=== PATIENT | female | born 1965 | race African-American/Black ===

== ENCOUNTER → 2018-01-08 17:58 | Outpatient (CLI) | payer OTHER, SELFPAY | PROVIDERS: Family Provider Family Medicine; PCP Family Medicine; Visit Provider Family Medicine | DX: J06.9 Acute upper respiratory infection, unspecified (principal) | CPT/HCPCS: 87070 ==

== ENCOUNTER → 2018-09-25 08:54 | Outpatient (CLI) | payer OTHER, SELFPAY ==
[2018-09-25 10:49] LABS: Absolute Neutrophil Count 4.8 X10^3/uL (2.0-7.7); Basophil# 0.02 X10^3/uL; Basophil% 0.3 % (0-1); Eosinophil# 0.11 X10^3/uL; Eosinophils% 1.4 % (0-5); Hematocrit 36.6 % (37-47); Hemoglobin 11.2 g/dl (12.0-15.0); Mean Corp Hgb Conc 30.6 g/gl (32-36); Mean Corpuscular Hgb 27.4 pg (27.0-32.0); Mean Corpuscular Volume 89.5 fL (81-99); Mean Platelet Vol. 12.1 fl (6.2-12.0); Monocyte# 0.42 X10^3/uL; Monocyte% 5.5 % (0-10); Neutrophil # 4.79 X10^3/uL (2.7-7.7); Neutrophil % 62.5 % (47-70); Platelet Count 230 K/mm3 (150-450); RBC Distribution Width CV 14.1 % (11.6-14.6); RBC Distribution Width SD 45.3 fl (35.1-43.9); Red Blood Count 4.09 M/mm3 (4.2-5.4); White Blood Count 7.7 K/mm3 (4.4-11.0)
[2018-09-25 10:51] LABS: POSITIVE COUNT NO; POSITIVE DIFFERENTIAL NO; POSITIVE MORPHOLOGY NO
[2018-09-25 11:46] LABS: ALB/GLOB Ratio 0.9 RATIO (0.9-2.4); AST(SGOT) 17 U/L (15-37); Alanine Aminotransfer ALT/SGPT 20 U/L (13-56); Albumin, Serum 3.6 g/dL (3.2-5.0); Alkaline Phosphatase 82 U/L (45-117); Anion Gap 6 (5-15); BUN 9 mg/dL (7-18); BUN/Creat Ratio 11.2 RATIO (10-20); Calcium,Total 8.5 mg/dL (8.5-10.1); Chloride 108 mmol/L (98-107); Cholesterol 152 mg/dL (200); EST Glomerular Filtration Rate 79 mL/min (>60); Est Glom Filt Rate - Afr Amer 96 mL/min (>60); Globulin 4.2 g/dL (2.2-4.2); Glucose 94 mg/dL (74-106); High Density Lipoprotein 55 mg/dL; Potassium 3.9 mmol/L (3.5-5.1); Protein, Total 7.8 g/dL (6.4-8.2); Sodium Level 141 mmol/L (136-145); Thyroid Stim Hormone (TSH) 2.46 uIU/mL (0.358-3.74); Triglycerides 106 mg/dL; Very Low Density Lipoprotein 21 mg/dL (5-40)
[2018-09-25 12:08] LABS: Vitamin D,25 Hydroxy 12.8 ng/mL (29.95-100.01)
== END ==
PROVIDERS: Family Provider Family Medicine; PCP Family Medicine; Visit Provider Nurse Practitioner Family
DX: Z00.00 Encounter for general adult medical examination without abnormal findings (principal); E55.9 Vitamin D deficiency, unspecified; R53.83 Other fatigue
CPT/HCPCS: 36415; 80053; 80061; 82306; 84443; 85025

== ENCOUNTER → 2019-10-01 16:27 | Outpatient (CLI) | payer OTHER, SELFPAY ==
[2016-04-05 22:40] VITALS: BMI 40.4
--- NOTE | 2019-10-01 16:30 | BI_ITS ---
MAMMOGRAPHY - BILATERAL SCREENING REASON FOR EXAM: Female, 54 years old. Routine annual screening examination. PERTINENT HISTORY: Sister with breast cancer. TECHNIQUE: Digital bilateral breast lencho (3D mammographic acquisition) in the CC and MLO projections. 2-D mediolateral oblique (MLO) and craniocaudad (CC) views of both breasts were obtained. CAD: Full Field Digital Mammography with Computer Added Detection was performed. COMPARISON: Comparison is made with prior examination dated September 09, 2017. FINDINGS: Breast Composition: There are scattered areas of fibroglandular density. There are no dominant masses or suspicious calcifications. Stable benign appearing bilateral axillary lymph nodes. No other significant abnormalities are identified. There has been no significant change since the prior study. BI/SCREEN MAMM (CAD) W/LENCHO BILAT IMPRESSION: Stable bilateral screening mammogram. Yearly follow-up mammogram recommended. (A) ASSESSMENT CATEGORY: BIRADS Category 2: Benign. A letter regarding these results will be sent to the patient by the facility within 30 days. Approximately 10% of breast cancers are not detected by mammography. A normal mammogram should not delay biopsy of a clinically suspicious abnormality. [id number] Electronically Signed: Kilo Zendejas, at 9:09 EST , Service support ,
== END ==
PROVIDERS: Family Provider Family Medicine; PCP Family Medicine; Referring Provider Nurse Practitioner Family; Visit Provider Nurse Practitioner Family
DX: Z12.31 Encounter for screening mammogram for malignant neoplasm of breast (principal)
CPT/HCPCS: 77063; 77067

== ENCOUNTER → 2019-10-31 10:24 | Outpatient (CLI) | payer OTHER, SELFPAY ==
[2019-10-31 10:18] VITALS: BMI 40.4
--- NOTE | 2019-10-31 10:24 | RAD_ITS ---
STUDY: X-RAY - RIGHT KNEE REASON FOR EXAM: Knee pain. TECHNIQUE: 4 view(s) of the knee. COMPARISON: None. FINDINGS: Normal visualized distal femur. Normal visualized proximal tibia and fibula. Normal proximal tibiofibular articulation. There are marginal osteophytes, severe joint space narrowing of the medial femorotibial compartment and subchondral cystic change of the medial femoral condyle. There are marginal osteophytes and mild joint space narrowing of the lateral femorotibial compartment. There are marginal osteophytes and moderate joint space narrowing of the patellofemoral articulation. The soft tissue structures are unremarkable. RAD/Knee 4 or More Views IMPRESSION: Tricompartmental arthrosis. Electronically Signed: Davi Mcgrath MD at 11:13 EST Tel , Service support ,
== END ==
LOC: HPRAD 10:24
PROVIDERS: Family Provider Family Medicine; PCP Family Medicine; Referring Provider Orthopaedic Surgery; Visit Provider Orthopaedic Surgery
DX: M25.561 Pain in right knee (principal)
CPT/HCPCS: 73564

== ENCOUNTER → 2019-12-31 16:53 | Outpatient (CLI) | payer OTHER, SELFPAY ==
[2019-12-30 08:09] VITALS: BMI 43.4
[2019-12-31 17:43] LABS: Absolute Lymphocyte Count 2.56 X10^3/uL (0.83-4.51); Absolute Neutrophil Count 5.9 X10^3/uL (2.0-7.7); Basophil# 0.03 X10^3/uL; Basophil% 0.3 % (0-1); Eosinophil# 0.14 X10^3/uL; Eosinophils% 1.5 % (0-5); Hematocrit 38.1 % (37-47); Hemoglobin 11.4 g/dL (12.0-15.0); Lymphocyte # 2.56 X10^3/ul (4.0); Lymphocyte % 27.7 % (19-41); Mean Corp Hgb Conc 29.9 g/dL (32-36); Mean Corpuscular Hgb 26.6 pg (27.0-32.0); Mean Platelet Vol. 11.8 fl (6.2-12.0); Monocyte# 0.57 X10^3/uL; Monocyte% 6.2 % (0-10); NRBC Flagged by Analyzer 0 % (0-5); Neutrophil # 5.92 X10^3/uL (2.7-7.7); Neutrophil % 64.1 % (47-70); Platelet Count 248 K/mm3 (150-450); RBC Distribution Width CV 14.5 % (11.6-14.6); RBC Distribution Width SD 46.7 fl (35.1-43.9); Red Blood Count 4.28 M/mm3 (4.2-5.4); White Blood Count 9.2 K/mm3 (4.4-11.0)
[2019-12-31 18:30] LABS: ALB/GLOB Ratio 0.9 RATIO (0.9-2.4); AST(SGOT) 18 U/L (15-37); Alanine Aminotransfer ALT/SGPT 22 U/L (13-56); Alkaline Phosphatase 92 U/L (45-117); Anion Gap 5 (5-15); BUN 14 mg/dL (7-18); BUN/Creat Ratio 13.7 RATIO (10-20); Calcium,Total 9.2 mg/dL (8.5-10.1); Chloride 106 mmol/L (98-107); Cholesterol 165 mg/dL (200); Creatinine, Serum 1.02 mg/dL (0.55-1.02); EST Glomerular Filtration Rate 60 mL/min (>60); Est Glom Filt Rate - Afr Amer 72 mL/min (>60); Globulin 4.6 g/dL (2.2-4.2); Glucose 83 mg/dL (74-106); High Density Lipoprotein 68 mg/dL; Potassium 4.2 mmol/L (3.5-5.1); Protein, Total 8.6 g/dL (6.4-8.2); Sodium Level 139 mmol/L (136-145); Triglycerides 51 mg/dL; Very Low Density Lipoprotein 10 mg/dL (5-40)
== END ==
PROVIDERS: Family Medicine; PCP Family Medicine; Referring Provider Family Medicine; Visit Provider Family Medicine
DX: G45.9 Transient cerebral ischemic attack, unspecified (principal)
CPT/HCPCS: 36415; 80053; 80061; 85025

== ENCOUNTER → 2020-01-01 08:27 | Outpatient (CLI) | payer OTHER, SELFPAY ==
[2019-12-30 08:09] VITALS: BMI 43.4
--- NOTE | 2020-01-01 12:47 | ECHOD_ITS ---
Reason For Study: TIA Procedure This was a 2D Doppler, Color Flow transthoracic echocardiogram. Exam performed in department. Left Ventricle Normal size and thickness. The estimated ejection fraction is 65 %. Stage 1 diastolic dysfunction. No regional wall motion abnormalities noted. Right Ventricle Normal size and thickness. Normal systolic function. Atria Normal left atrium. Normal right atrium. Normal atrial septum. Bubble contrast study negative for right to left interatrial shunt. Mitral Valve The mitral valve is structurally normal. No prolapse or stenosis seen. Tricuspid Valve Normal tricuspid valve. Unable to estimate RV systolic pressure due to insufficient tricuspid regurgitant envelope. Aortic Valve Normal aortic valve. Trisinus/trileaflet aortic valve. Pulmonic Valve Normal pulmonic valve. Great Vessels Normal aortic root. Normal arch. Normal inferior vena cava. Inferior vena cava collapse with sniff. Pericardium/Pleural No pericardial effusion. Medication 22 gauge I.V. with prn adaptor inserted into right arm. Performed a rapid injection of agitated mix of 9 cc saline and 1cc air to assess for atrial septal defect. MMode/2D Measurements & Calculations LVIDd: 4.4 cm IVSd: 0.96 cm Ao root diam: 2.9 cm LVIDs: 2.8 cm LVPWd: 1.0 cm RVDd: 2.9 cm FS: 35.7 % LAV(MOD-bp): 37.9 ml LVAd ap4: 27.1 cm2 SV(MOD-sp4): 49.8 ml LAV(MOD-bp) Indexed: 18.9 ml/m2 EDV(MOD-sp4): 79.0 ml LAV(MOD-sp2): 40.9 ml EDV(sp4-el): 81.8 ml LAV(MOD-sp4): 32.2 ml LVAs ap4: 14.6 cm2 ESV(MOD-sp4): 29.2 ml ESV(sp4-el): 28.1 ml EF(MOD-sp4): 63.1 % EF(sp4-el): 65.7 % SV(sp4-el): 53.7 ml LA A4 area: 14.3 cm2 LA dimension(2D): 3.2 cm RA A4 area: 10.6 cm2 Doppler Measurements & Calculations MV E max darrin: 48.8 cm/sec Lat Peak E' Darrin: 8.0 cm/sec Med Peak E' Darrin: 7.6 cm/sec MV A max darrin: 64.6 cm/sec E/E' lat: 6.1 E/E' med: 6.4 MV E/A: 0.75 Ao V2 max: 175.8 cm/sec LV V1 max: 99.6 cm/sec PA V2 max: 103.8 cm/sec Ao max P.4 mmHg LV V1 max P.0 mmHg Interpretation Summary The estimated ejection fraction is 65 %. Stage 1 diastolic dysfunction. Unable to estimate RV systolic pressure due to insufficient tricuspid regurgitant envelope. Bubble contrast study negative for right to left interatrial shunt. There is no comparison study available. Ordering Physician: Jimenez Adkins Referring Physician: Jimenez Adkins Performed By: Paula Bruce RDCS
--- NOTE | 2020-01-01 13:46 | MRI_ITS ---
STUDY: MRA OF THE HEAD WITHOUT CONTRAST REASON FOR EXAM: Female, 54 years old. tia, rt arm pain TECHNIQUE: 3-D riue-dx-wutouc (TOF) imaging was performed with MIPs. The study was performed unenhanced. COMPARISON: None. FINDINGS: Normal bilateral petrous carotid arteries. Normal right cavernous carotid artery with a normal supraclinoid bifurcation. Normal left cavernous carotid artery with a normal supraclinoid bifurcation. Normal right A1 segments of the anterior cerebral artery. Normal left A1 segments of the anterior cerebral artery. Normal intact anterior communicating artery (ACOM). Normal bilateral A2 segments of the anterior cerebral arteries. Normal right M1 and M2 segments of the middle cerebral arteries, with a normal M1 bifurcation. Normal left M1 and M2 segments of the middle cerebral arteries, with a normal M1 bifurcation. 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 There is a persistent origin of the left posterior cerebral artery with absence of the P1 segment of the left posterior cerebral artery. Normal bilateral vertebral arteries. Normal basilar artery with a normal basilar bifurcation. The visualized bilateral superior cerebellar (SCA) arteries are normal. Normal bilateral P1, P2 and visualized P3 segments of the posterior cerebral arteries. There is no demonstrated aneurysm of the [place]. There is no major vessel occlusion or hemodynamically significant stenosis. There is no demonstrated abnormality of the visualized brain. MRI/MRA Head ONLY without Contrast IMPRESSION: Normal MRA of the head Electronically Signed: Erik Hdz MD at 15:17 EDT Tel , Service support ,
--- NOTE | 2020-01-01 13:46 | MRI_ITS ---
STUDY: MRI BRAIN WITH AND WITHOUT CONTRAST REASON FOR EXAM: Female, 54 years old. tia, rt arm pain TECHNIQUE: Standardized multiplanar fat and water weighted pulse sequences were obtained. IV Yes YES was administered for the contrast portion of the examination. COMPARISON: None. FINDINGS: Normal size of the ventricles and extra-axial spaces for the patient''s age. Normal white matter tracts of the supratentorial brain. There is no evidence for recent intracranial ischemia or other cause of cytotoxic edema on diffusion weighted imaging (DWI). Normal T2* images of the brain without demonstrated susceptibility artifact. There is no demonstrated hemosiderin stain. Normal bilateral basal ganglia. Normal thalami. There is no extra-axial fluid accumulation. Normal flow voids within the major intracranial circulation suggesting patency by spin echo criteria. Normal venous enhancement. There is no enhancing intra-axial or extra-axial abnormality. Normal sella turcica, pituitary gland, infundibular stalk, optic chiasm and hypothalamus. Normal tectal plate and pineal gland. Normal midbrain, jose j and medulla. Normal cerebellum. Normal basal cisterns. Normal bilateral temporal bones. Normal bilateral internal auditory canals. No demonstrated orbital abnormality, within the constraints of a routine brain study. Normal visualized paranasal sinuses. Normal calvarium and skull base. Normal visualized soft tissue structures. Normal visualized upper cervical spine. MRI/Brain W/WO Contrast IMPRESSION: Normal unenhanced and enhanced MRI of the brain. Electronically Signed: Erik Hdz MD at 15:19 EDT Tel , Service support ,
[2020-01-01 18:33] LABS: Vitamin B12 451 pg/mL (211-911)
[2020-01-01 18:40] LABS: Iron 73 ug/dL (50-170); Iron Binding Capacity,Total 296 ug/dL (250-450); PERCENT IRON SATURATION 24.7 % (15.0-55.0)
== END ==
PROVIDERS: Family Medicine; PCP Family Medicine; Referring Provider Family Medicine; Visit Provider Family Medicine
DX: D64.9 Anemia, unspecified (principal); G45.9 Transient cerebral ischemic attack, unspecified
CPT/HCPCS: 36415; 70544; 70553; 82607; 82746; 83540; 83550; 93306; A9575; A4216

== ENCOUNTER → 2023-08-14 | Outpatient (CLI) | payer MEDICAID, SELFPAY ==
[2023-08-14 14:45] LABS: Absolute Lymphocyte Count 4.19 X10^3/uL (0.83-4.51); Basophil# 0.05 X10^3/uL; Basophil% 0.5 % (0-1); Eosinophil# 0.12 X10^3/uL; Eosinophils% 1.1 % (0-5); Hematocrit 37.7 % (37-47); Hemoglobin 11.2 g/dL (12.0-15.0); Lymphocyte # 4.19 X10^3/ul (0.83-4.51); Lymphocyte % 38.1 % (19-41); Mean Corp Hgb Conc 29.7 g/dL (32-36); Mean Corpuscular Hgb 26.9 pg (27.0-32.0); Mean Corpuscular Volume 90.4 fL (81-99); Mean Platelet Vol. 10.5 fl (6.2-12.0); Monocyte# 0.65 X10^3/uL; Monocyte% 5.9 % (0-10); NRBC Flagged by Analyzer 0 % (0-5); Neutrophil # 5.96 X10^3/uL (2.7-7.7); Neutrophil % 54.1 % (47-70); Platelet Count 257 K/mm3 (150-450); RBC Distribution Width SD 46.1 fl (35.1-43.9); Red Blood Count 4.17 M/mm3 (4.2-5.4)
--- NOTE | 2023-08-14 14:45 | RAD_ITS ---
STUDY: X-RAY CHEST REASON FOR EXAM: Female, 57 years old. Dyspnea. TECHNIQUE: Frontal and lateral views of the chest. COMPARISON: None. FINDINGS: The lungs are clear and expanded. There is no demonstrated pleural abnormality. Normal size heart. Normal mediastinum and manjinder. Normal visualized pulmonary arteries. Normal visualized aortic arch and descending thoracic aorta. Normal visualized thoracic spine. Normal visualized ribs, clavicles, and shoulders. No abnormality of the visualized soft tissue structures of the upper abdomen. RAD/Chest PA and Lateral IMPRESSION: Normal x-ray examination of the chest. Electronically Signed: Toni Chavarria MD at 14:56 EDT ,
[2023-08-14 15:08] LABS: ALB/GLOB Ratio 0.8 RATIO (0.9-2.4); AST(SGOT) 16 U/L (15-37); Alanine Aminotransfer ALT/SGPT 24 U/L (13-56); Albumin, Serum 3.7 g/dL (3.2-5.0); Alkaline Phosphatase 81 U/L (45-117); Anion Gap 4 (5-15); BUN 16 mg/dL (7-18); BUN/Creat Ratio 16.8 RATIO (10-20); Calcium,Total 8.9 mg/dL (8.5-10.1); Chloride 109 mmol/L (98-107); Creatinine, Serum 0.95 mg/dL (0.55-1.02); EST Glomerular Filtration Rate 64 mL/min (>60); Est Glom Filt Rate - Afr Amer 77 mL/min (>60); Globulin 4.6 g/dL (2.2-4.2); Glucose 111 mg/dL (74-106); Iron 57 ug/dL (50-170); Iron Binding Capacity,Total 305 ug/dL (250-450); PERCENT IRON SATURATION 18.7 % (15.0-55.0); Potassium 3.9 mmol/L (3.5-5.1); Protein, Total 8.3 g/dL (6.4-8.2); Sodium Level 139 mmol/L (136-145); Thyroid Stim Hormone (TSH) 2.45 uIU/mL (0.358-3.74)
== END | disposition home or self-care (01) ==
LOC: LAB 14:29
PROVIDERS: PCP Family Medicine; Referring Provider Nurse Practitioner Family; Visit Provider Nurse Practitioner Family
DX: D64.9 Anemia, unspecified (principal); R06.09 Other forms of dyspnea
CPT/HCPCS: 36415; 71046; 80053; 83540; 83550; 84443; 85025

== ENCOUNTER → 2023-08-24 | Outpatient (CLI) | payer MEDICAID, SELFPAY ==
--- NOTE | 2023-08-24 08:56 | US_ITS ---
STUDY: ULTRASOUND BREAST - LEFT REASON FOR EXAM: Female, 57 years old. Pain in the left upper outer quadrant. TECHNIQUE: Axial and longitudinal images of the LEFT breast were performed with a high resolution ultrasound transducer. # OF IMAGES: 27 COMPARISON: Comparison is made with prior mammogram done earlier today. FINDINGS: LEFT Breast: The upper-outer quadrant of left breast was examined with ultrasound. There is a 1 cm x 0.7 cm x 0.5 cm benign-appearing lymph node. US/Breast Limited Unilateral IMPRESSION: 1 cm x 0.7 cm x 0.5 cm benign-appearing lymph node in the axillary region of the left breast. ASSESSMENT CATEGORY: BIRADS Category 2: Benign. A letter regarding these results will be sent to the patient by the facility within 30 days. Electronically Signed: Kilo Zendejas MD at 10:54 EDT ,
--- NOTE | 2023-08-24 08:56 | BI_ITS ---
MAMMOGRAPHY - BILATERAL DIAGNOSTIC REASON FOR EXAM: Female, 57 years old. 2 month history of sharp left breast pain. PERTINENT HISTORY: Sister with breast cancer. TECHNIQUE: Digital bilateral breast eva (3D mammographic acquisition) in the CC and MLO projections. 2-D mediolateral oblique (MLO) and craniocaudad (CC) views of both breasts were obtained. CAD: Full Field Digital Mammography with Computer Added Detection was performed. COMPARISON: Comparison is made with prior study dated October 01, 2019 and September 09, 2017. FINDINGS: Breast Composition: There are scattered areas of fibroglandular density. There are no dominant masses or suspicious calcifications. Stable benign-appearing bilateral axillary lymph nodes. No other significant abnormalities are identified. There has been no significant change since the prior study. BI/DIAG MAMM W/CAD, BILAT IMPRESSION: Stable bilateral diagnostic mammogram. One year follow-up recommended. (A) ASSESSMENT CATEGORY: BIRADS Category 2: Benign. A letter regarding these results will be sent to the patient by the facility within 30 days. Approximately 10% of breast cancers are not detected by mammography. A normal mammogram should not delay biopsy of a clinically suspicious abnormality. Electronically Signed: Kilo Zendejas MD at 10:06 EDT ,
== END | disposition home or self-care (01) ==
LOC: OPBI 08:54
PROVIDERS: PCP Family Medicine; Referring Provider Nurse Practitioner Family; Visit Provider Nurse Practitioner Family
DX: R06.09 Other forms of dyspnea (principal); N64.4 Mastodynia
CPT/HCPCS: 76642; 77062; 77066; G0279

== ENCOUNTER → 2023-10-20 | Outpatient (CLI) | payer MEDICAID, SELFPAY ==
--- OUTSIDE RECORDS SUMMARY | 2023-10-20 09:24 | XMS RPT_ITS | CCD ---
Author Name Unknown Address [address] [place] [address] Organization [facility] Care Team Providers Care Registered Nurse Renal Name Role Phone FRANCO ARZOLA, ROCIO Christianson Primary Care Physician [phone] ROCIO GAMEZ MD. Primary Care Unavailable NIKKI SILVA Attending Unavailable Medications Completed/Discontinued Medications Medication Drug Class(es) Dates Sig (Normalized) Sig (Original) naproxen 500 mg oral tablet (1 source) Nonsteroidal Anti-inflammatory Drug Start: 04-04-2015 End: 05-04-2015 Naprosyn 500 mg oral tablet Dose : 500 mg = 1 tab(s), PO, BID, PRN as needed for pain, # 60 tab(s), 0 Refill(s) Start Date: 04/04/15 Stop Date: 05/04/15 Status: Ordered Problems Problem Classification Problem Date Documented Da te Episodic/Chronic Nonspecific chest pain (1 source) Chest pain; Translations: [Chest pain, unspecified] Onset: 07-11-2022 Episodic Other lower respiratory disease (1 source) Dyspnea; Translations: [Dyspnea, unspecified] Onset: 07-11-2022 Episodic Phlebitis; thrombophlebitis and thromboembolism (1 source) Deep venous thrombosis 04-04-2015 Episodic Results Test Name Value Interpretation Reference Range Facil ity Vital Signs Date Time Vital Sign Value Performing Clinician Faci lity 07-11-2022 17:13-0400 Body height 155 cm NIKKI ELLISElle PRUITT [facility] 07-11-2022 17:13-0400 Body temperature 98.42 [degF] [facility] 07-11-2022 17:13-0400 Body weight 109.2 kg NIKKI SILVA DO [facility] 07-11-2022 17:13-0400 Diastolic blood pressure 83 mm[Hg] NIKKI SILVA DO [facility] 07-11-2022 17:13-0400 Heart rate 112 /min NIKKI SILVA DO [facility] 07-11-2022 17:13-0400 Respiratory rate 20 /min NIKKI SILVA DO [facility] 07-11-2022 17:13-0400 Systolic blood pressure 128 mm[Hg] NIKKI SILVA DO [facility] Encounters Encounter Date Encounter Type Care Provider Facility Start: 07-11-2022 End: 07-11-2022 Emergency department patient visit ROCIO GAMEZ MD. Facility:B Start: 07-11-2022 End: 07-11-2022 Emergency department patient visit NIKKI SILVA DO [facility] Procedures Date Procedure Procedure Detail Performing Clinician Cholecystectomy NIKKI LLAMAS [facility] Hysterectomy NIKKI Almeida [facility] Payers Date Payer Category Payer Self-pay 1965 Unknown [id number] Social History Date Type Detail Facility Tobacco smoking status Never smo ked tobacco (finding) [facility] Sex Assigned At Sex [facility] Clinical Note 07-11-2022 Note Date & Type Note Facility 07-11-2022 Note Discharge Instructions Thank you for allowing [facility] to assist you with your healthcare needs. The following is important discharge information regarding your hospital visit. Diagnosis from Today's Visit Chest pain Dyspnea SOB - Shortness of breath What to Do Next Instructions from Your Care Team No qualifying data available. Post Acute Orders No qualifying data available. You Need to Schedule the Following Appointments Follow Up with Go to emergency room if symptoms worsen When Within 2-4 days Follow Up with ROCIO GAMEZ MD When Within 2-4 days Where: [facility] [address] [place] [address]- Allergies NKA Medications Please ask your primary doctor or pharmacist before taking any other medication not listed, including over the counter drugs, herbal medications, vitamins and or supplements as they may interact with your home medications. What How Much When Instructions Last Dose Unchanged naproxen (Naprosyn 500 mg oral tablet) 1 tab(s) by mouth Two (2) times a day as needed for as needed for pain Duration: 30 Days Please take this list to your next doctor s visit. Bring all medications you take, including over the counter medications, herbals and other supplements with you to your doctor s visit. Patients and families are reminded to discard old lists and to update any records with all medication providers or retail pharmacies. Education Materials Uncertain Causes of Chest Pain Chest pain can happen for a number of reasons. Sometimes the cause can't be determined. If your condition does not seem serious, and your pain does not appear to be coming from your heart, your healthcare provider may recommend watching it closely. Sometimes the signs of a serious problem take more time to appear. Many problems not related to your heart can cause chest pain. These include: Musculoskeletal. Costochondritis is an inflammation of the tissues around the ribs that can occur from trauma or overuse injuries, or a strain of the muscles of the chest wall Respiratory. Pneumonia, collapsed lung (pneumothorax), or inflammation of the lining of the chest and lungs (pleurisy) Gastrointestinal. Esophageal reflux, heartburn, ulcers, or gallbladder disease Anxiety and panic disorders Nerve compression and inflammation Rare miscellaneous problems such as aortic aneurysm (a swelling of the large artery coming out of the heart) or pulmonary embolism (a blood clot in the lungs) Home care After your visit, follow these recommendations: Rest today and avoid strenuous activity. Take any prescribed medicine as directed. Be aware of any recurrent chest pain and notice any changes Follow-up care Follow up with your healthcare provider if you do not start to feel better within 24 hours, or as advised. Call 911 Call 911 if any of these occur: A change in the type of pain: if it feels different, becomes more severe, lasts longer, or begins to spread into your shoulder, arm, neck, jaw or back Shortness of breath or increased pain with breathing Weakness, dizziness, or fainting Rapid heart beat Crushing sensation in your chest When to seek medical advice Call your healthcare provider right away if any of the following occur: Cough with dark colored sputum (phlegm) or blood Fever of 100.4 F (38 C) or higher, or as directed by your healthcare provider Swelling, pain or redness in one leg 2642-3846 [employer]. [address] [place] [address], [place] [address]. All rights reserved. This information is not intended as a substitute for professional medical care. Always follow your healthcare professional's instructions. Additional Information VACCINATE! IT SAVES LIVES! Members of the community who have not yet received the COVID-19 vaccine and would like to receive it can visit one of [facility] vaccine clinics. There are many vaccine clinic locations within the [facility]. For locations and available times, please visit [email or web address]. It is important to note that some COVID mobile vaccine clinics are held outdoors and may be canceled in rainy or stormy conditions. To learn more about pediatric vaccinations (ages 5-11), we invite you to visit the [facility] webpage. https://www.[facility].org/pages/2 236-Nwajq-Lukvdvpyzxc-Frequently-Asked -Questions.html To learn more about the COVID-19 vaccine, we invite you to visit the [facility] website for a list of frequently asked questions. [email or web address].ActiveSec/assets/Patients-an d-Visitors/utrof-Gvkqeag-Pxesgekjpu_Hq ked-Questions.pdf [facility] Patient Portal Access Instructions: Stay connected with your healthcare team and access your personal medical information anytime with the [facility] Patient Portal. If you would like a full copy of your medical records please contact the [facility] Medical Records Department Monday through Monday between 8a.m. and 4:30p.m. Please follow the directions below to access the portal: 1.Access the email account you provided upon [facility] to the [facility].2.Look for an invitation email from [facility].3.Open the email and access the invitation link: Accept Invitation to [facility]4.Fill in the required cardoso to create your account. Sign into [email or web address] with your username and password that you created in the above steps to stay up to date. You can then view a summary of results, a summary of your visits, and the ability to download your summaries to your computer or send the information securely to a physician. Remember that your healthcare information is confidential, so carefully consider who you will allow to register on the [facility] [employer] Patient Portal for access to your information. You can also access the [facility] Patient Portal on the [employer]. Simply click on Health Records under Health Data and then click on the [facility] logo. HOW TO SAFELY DISPOSE OF PRESCRIPTION MEDICATIONS Please use one of the following methods to safely dispose of your unused medications. 1.Use a drug disposal kit: the drug disposal pouch allows you to safely discard your old and unused drugs. Ask your nurse to give you one when you are discharged.2.Visit a local take-back location: Many local pharmacies and police departments have programs that collect old and unwanted prescription drugs. Call your local pharmacy or go to http://[employer]/9E6Jw9u to find one close to you.3.Make use of household items: Use cat litter or old coffee grounds to dispose medications if other options are not available. Mix your drugs with these household products, seal them in an airtight container and throw it into the garbage. Call [facility]: [phone] to be sure your drugs can be disposed of in this way. Some medicines may require a different approach.4.Never flush your medications down the toilet. IF YOU HAVE BEEN PRESCRIBED AN OPIOIDS FOR PAIN If you have been prescribed an opioid (such as hydrocodone, oxycodone or morphine), it is critical to understand the possible side effects and risks of opioid pain medications. Even when taken as directed, opioids can have several side effects including: Tolerance, meaning you might need to take more of a medication for the same pain relief. Nausea, vomiting and/or constipation. Sleepiness, dizziness, dry mouth, confusion, depression or itching. Physical dependence, meaning you have withdrawal symptoms when a medication is stopped ? this can develop within a few days. KNOW YOUR RESPONSIBILITIES It is important to know exactly how much and how often to take the opioid pain medications you are prescribed. Never take opioids in higher amounts or more often than prescribed. Do not combine opioids with alcohol or other drugs that cause drowsiness, such as benzodiazepines, also known as benzos, including diazepam and alprazolam, muscle relaxants or sleep aids. Never sell or share prescription opioids. This is illegal. Store opioids in a secure place and out of reach of others (including children, family, friends and visitors). The last page(s) of this document has been signed and retained as a CHART COPY Signatures Patient Education Materials Chest Pain, Uncertain Cause Medication Leaflets My discharge plan and instructions have been reviewed and explained to me and I,KEVIN WARREN understand my current condition and have read and understand these discharge instructions. I have received a written copy of the plan/instructions. If I have questions, I am aware that I should contact my doctor. Patient/Lead Pl Sql Developer Signature: _ Date/Time: Relationship to Patient: Witness Name/Signature: Date/Time: [facility] Emergency department Discharge summary 07-11-2022 Note Date & Type Note Facility 07-11-2022 Emergency department Discharge summary Discharge Instructions Thank you for allowing [facility] to assist you with your healthcare needs. The following is important discharge information regarding your hospital visit. Diagnosis from Today's Visit Chest pain Dyspnea SOB - Shortness of breath What to Do Next Instructions from Your Care Team No qualifying data available. Post Acute Orders No qualifying data available. You Need to Schedule the Following Appointments Follow Up with Go to emergency room if symptoms worsen When Within 2-4 days Follow Up with ROCIO GAMEZ MD When Within 2-4 days Where: [facility] [address] [place] [address]- Allergies NKA Medications Please ask your primary doctor or pharmacist before taking any other medication not listed, including over the counter drugs, herbal medications, vitamins and or supplements as they may interact with your home medications. What How Much When Instructions Last Dose Unchanged naproxen (Naprosyn 500 mg oral tablet) 1 tab(s) by mouth Two (2) times a day as needed for as needed for pain Duration: 30 Days Please take this list to your next doctor s visit. Bring all medications you take, including over the counter medications, herbals and other supplements with you to your doctor s visit. Patients and families are reminded to discard old lists and to update any records with all medication providers or retail pharmacies. Education Materials Uncertain Causes of Chest Pain Chest pain can happen for a number of reasons. Sometimes the cause can't be determined. If your condition does not seem serious, and your pain does not appear to be coming from your heart, your healthcare provider may recommend watching it closely. Sometimes the signs of a serious problem take more time to appear. Many problems not related to your heart can cause chest pain. These include: Musculoskeletal. Costochondritis is an inflammation of the tissues around the ribs that can occur from trauma or overuse injuries, or a strain of the muscles of the chest wall Respiratory. Pneumonia, collapsed lung (pneumothorax), or inflammation of the lining of the chest and lungs (pleurisy) Gastrointestinal. Esophageal reflux, heartburn, ulcers, or gallbladder disease Anxiety and panic disorders Nerve compression and inflammation Rare miscellaneous problems such as aortic aneurysm (a swelling of the large artery coming out of the heart) or pulmonary embolism (a blood clot in the lungs) Home care After your visit, follow these recommendations: Rest today and avoid strenuous activity. Take any prescribed medicine as directed. Be aware of any recurrent chest pain and notice any changes Follow-up care Follow up with your healthcare provider if you do not start to feel better within 24 hours, or as advised. Call 911 Call 911 if any of these occur: A change in the type of pain: if it feels different, becomes more severe, lasts longer, or begins to spread into your shoulder, arm, neck, jaw or back Shortness of breath or increased pain with breathing Weakness, dizziness, or fainting Rapid heart beat Crushing sensation in your chest When to seek medical advice Call your healthcare provider right away if any of the following occur: Cough with dark colored sputum (phlegm) or blood Fever of 100.4 F (38 C) or higher, or as directed by your healthcare provider Swelling, pain or redness in one leg 1748-3293 [employer]. [address] [place] [address]. All rights reserved. This information is not intended as a substitute for professional medical care. Always follow your healthcare professional's instructions. Additional Information VACCINATE! IT SAVES LIVES! Members of the community who have not yet received the COVID-19 vaccine and would like to receive it can visit one of [facility] vaccine clinics. There are many vaccine clinic locations within the [facility]. For locations and available times, please visit [email or web address]. It is important to note that some COVID mobile vaccine clinics are held outdoors and may be canceled in rainy or stormy conditions. To learn more about pediatric vaccinations (ages 5-11), we invite you to visit the [facility] webpage. https://www.[facility].org/pa ges/3887-Ntssr-Tpsbiavthrl-Freque jwqe-Laulj-Wujgjvdek.html To learn more about the COVID-19 vaccine, we invite you to visit the [facility] website for a list of frequently asked questions. [email or web address]/Jovani wi-xje-Mtnseqdq/lrmzs-Fkeozja-Ril quently_Asked-Questions.pdf [facility] [employer] Patient Portal Access Instructions: Stay connected with your healthcare team and access your personal medical information anytime with the [facility] Patient Portal. If you would like a full copy of your medical records please contact the [facility] Medical Records Department Monday through Monday between 8a.m. and 4:30p.m. Please follow the directions below to access the portal: 1.Access the email account you provided upon registration to the hospital.2.Look for an invitation email from [facility].3.Open the email and access the invitation link: Accept Invitation to [facility]4.Fill in the required cardoso to create your account. Sign into [email or web address] with your username and password that you created in the above steps to stay up to date. You can then view a summary of results, a summary of your visits, and the ability to download your summaries to your computer or send the information securely to a physician. Remember that your healthcare information is confidential, so carefully consider who you will allow to register on the [employer] Patient Portal for access to your information. You can also access the [facility] Patient Portal on the [employer] arjun. Simply click on Health Records under Health Data and then click on the [employer] logo. HOW TO SAFELY DISPOSE OF PRESCRIPTION MEDICATIONS Please use one of the following methods to safely dispose of your unused medications. 1.Use a drug disposal kit: the drug disposal pouch allows you to safely discard your old and unused drugs. Ask your nurse to give you one when you are discharged.2.Visit a local take-back location: Many local pharmacies and police departments have programs that collect old and unwanted prescription drugs. Call your local pharmacy or go to http://[employer] Storage/8A5Qn0t to find one close to you.3.Make use of household items: Use cat litter or old coffee grounds to dispose medications if other options are not available. Mix your drugs with these household products, seal them in an airtight container and throw it into the garbage. Call [facility]: [phone] to be sure your drugs can be disposed of in this way. Some medicines may require a different approach.4.Never flush your medications down the toilet. IF YOU HAVE BEEN PRESCRIBED AN OPIOIDS FOR PAIN If you have been prescribed an opioid (such as hydrocodone, oxycodone or morphine), it is critical to understand the possible side effects and risks of opioid pain medications. Even when taken as directed, opioids can have several side effects including: Tolerance, meaning you might need to take more of a medication for the same pain relief. Nausea, vomiting and/or constipation. Sleepiness, dizziness, dry mouth, confusion, depression or itching. Physical dependence, meaning you have withdrawal symptoms when a medication is stopped ? this can develop within a few days. KNOW YOUR RESPONSIBILITIES It is important to know exactly how much and how often to take the opioid pain medications you are prescribed. Never take opioids in higher amounts or more often than prescribed. Do not combine opioids with alcohol or other drugs that cause drowsiness, such as benzodiazepines, also known as benzos, including diazepam and alprazolam, muscle relaxants or sleep aids. Never sell or share prescription opioids. This is illegal. Store opioids in a secure place and out of reach of others (including children, family, friends and visitors). The last page(s) of this document has been signed and retained as a CHART COPY Signatures Patient Education Materials Chest Pain, Uncertain Cause Medication Leaflets My discharge plan and instructions have been reviewed and explained to me and I,KEVIN WARREN understand my current condition and have read and understand these discharge instructions. I have received a written copy of the plan/instructions. If I have questions, I am aware that I should contact my doctor. Patient/Lead Pl Sql Developer Signature: Date/Time: Relationship to Patient: ____ Witness Name/Signature: Date/Time: [facility] Discharge instructions 07-11-2022 Note Date & Type Note Facility 07-11-2022 Hospital Discharg e instructions Patient Education 07/11/2022 17:48:49 Chest Pain, Uncertain Cause Uncertain Causes of Chest Pain Chest pain can happen for a number of reasons. Sometimes the cause can't be determined. If your condition does not seem serious, and your pain does not appear to be coming from your heart, your healthcare provider may recommend watching it closely. Sometimes the signs of a serious problem take more time to appear. Many problems not related to your heart can cause chest pain. These include: Musculoskeletal. Costochondritis is an inflammation of the tissues around the ribs that can occur from trauma or overuse injuries, or a strain of the muscles of the chest wall Respiratory. Pneumonia, collapsed lung (pneumothorax), or inflammation of the lining of the chest and lungs (pleurisy) Gastrointestinal. Esophageal reflux, heartburn, ulcers, or gallbladder disease Anxiety and panic disorders Nerve compression and inflammation Rare miscellaneous problems such as aortic aneurysm (a swelling of the large artery coming out of the heart) or pulmonary embolism (a blood clot in the lungs) Home care After your visit, follow these recommendations: Rest today and avoid strenuous activity. Take any prescribed medicine as directed. Be aware of any recurrent chest pain and notice any changes Follow-up care Follow up with your healthcare provider if you do not start to feel better within 24 hours, or as advised. Call 911 Call 911 if any of these occur: A change in the type of pain: if it feels different, becomes more severe, lasts longer, or begins to spread into your shoulder, arm, neck, jaw or back Shortness of breath or increased pain with breathing Weakness, dizziness, or fainting Rapid heart beat Crushing sensation in your chest When to seek medical advice Call your healthcare provider right away if any of the following occur: Cough with dark colored sputum (phlegm) or blood Fever of 100.4 F (38 C) or higher, or as directed by your healthcare provider Swelling, pain or redness in one leg [id number] [employer]. [address] [place] [address]. All rights reserved. This information is not intended as a substitute for professional medical care. Always follow your healthcare professional's instructions. Follow Up Care 07/11/2022 17:08:09 With:Go to emergency room if symptoms worsen Address:Unknown When:2-4 days With:ROCIO GAMEZ MD Address: [facility] [address] [place] [address]- When:2-4 days [facility] Clinical Note 07-11-2022 Note Date & Type Note Facility 07-11-2022 Note ORIGINAL HISTORY: Chest pain COMPARISON: 06 Mar 2014 FINDINGS: The lungs and pleural spaces are clear. The pulmonary vasculature is unremarkable in appearance. The cardiac silhouette is within normal size limits. IMPRESSION: Clear lungs. Interpreted by: Harvinder Poe MD Preliminary Report By: Harvinder Poe MD Electronically signed By Harvinder Poe MD Dictated Date: 07/11/2022 5:59:02 PM Prelim Date: 07/11/2022 5:59:20 PM Sign Date: 07/11/2022 5:59:20 PM Ordering Provider: [facility] Clinical Note 07-11-2022 Note Date & Type Note Facility 07-11-2022 Note ORIGINAL HISTORY: Chest pain COMPARISON: 06 Mar 2014 FINDINGS: The lungs and pleural spaces are clear. The pulmonary vasculature is unremarkable in appearance. The cardiac silhouette is within normal size limits. IMPRESSION: Clear lungs. Interpreted by: Harvinder Poe MD Preliminary Report By: Harvinder Poe MD Electronically signed By Harvinder Poe MD Dictated Date: 07/11/2022 5:59:02 PM Prelim Date: 07/11/2022 5:59:20 PM Sign Date: 07/11/2022 5:59:20 PM Ordering Provider: [facility] Evaluation + Plan note Note Date & Type Note Facility Evaluation + Plan note No data available for this section [facility] Summary Purpose Family History No Family History Records Found Advance Directives No Advanced Directives Records Found Additional Source Comments Care Team (unrecognized sect ion and content) Care Team Personnel Name: ROCIO GAMEZ MD Member Role: Primary Care Physician Address: Address: [place] [address] [place] [address]- Care Team Related Persons Name: TONE WARREN Address: Home [address] [place] [address] [place] INFORMATION SOURCE (unrecogn ized section and content) FOR RECORDS PERTAINING TO PATIENTS WHO ARE OR HAVE BEEN ENROLLED IN A CHEMICAL DEPENDENCY/SUBSTANCEABUSE PROGRAM, SOME INFORMATION MAY BE OMITTED. This clinical summary was aggregated from multiple sources. Caution should be exercised in using it in the provision of clinical care. This summary normalizes information from multiple sources, and as a consequence, information in this document may materially change the coding, format and clinical context of patient data. In addition, data may be omitted in some cases. CLINICAL DECISIONS SHOULD BE BASED ON THE PRIMARY CLINICAL RECORDS. [facility] [employer] [facility]. provides no warranty or guarantee of the accuracy or completeness of information in this document.
--- NOTE | 2023-10-22 06:50 | PFT_ITS ---
INTRODUCTION: The patient is a 58-year-old -[place] female who presents for pulmonary function studies secondary to a diagnosis of dyspnea. Respiratory therapy reported good patient effort. Bronchodilators were used during testing. INTERPRETATION: Forced expiration spirometry demonstrates no evidence of a large airways obstructive ventilatory defect. There was no significant response to aerosolized bronchodilators. Body plethysmography was performed and revealed lung volumes to be within normal limits. Diffusing capacity by single breath CO was also within normal limits. IMPRESSION: Grossly normal pulmonary function studies.
== END | disposition home or self-care (01) ==
LOC: PSN 08:58
PROVIDERS: Referring Provider Nurse Practitioner Family; Visit Provider Nurse Practitioner Family
DX: R06.09 Other forms of dyspnea (principal)
CPT/HCPCS: 94060; 94726; 94729

== ENCOUNTER → 2023-11-07 | Outpatient (CLI) | payer MEDICAID, SELFPAY ==
--- OUTSIDE RECORDS SUMMARY | 2023-11-07 20:25 | XMS RPT_ITS | CCD ---
Author Name Unknown Address [address] [place] [address] Organization [facility] Care Team Providers Care Feedlot Manager Name Role Phone FRANCO ARZOLA, ROCIO Christianson Primary Care Physician ROCIO GAMEZ MD. Primary Care Unavailable NIKKI [...] Body height 155 cm NIKKI ELLISElle PRUITT [facility] 07-11-2022 17:13-0400 Body temperature 98.42 [degF] [facility] 07-11-2022 17:13-0400 Body weight 109.2 kg NIKKI SILVA DO [facility] 07-11-2022 17:13-0400 Diastolic blood pressure 83 mm[Hg] NIKKI SILVA DO [facility] 07-11-2022 17:13-0400 Heart rate 112 /min NIKKI SILVA DO [facility] 07-11-2022 17:13-0400 Respiratory rate 20 /min NIKKI SILVA DO [facility] 07-11-2022 17:13-0400 Systolic blood pressure 128 mm[Hg] NIKKI SILVA DO O-RID [facility] Encounters Encounter Date Encounter Type Care Provider Facility Start: 07-11-2022 End: 07-11-2022 Emergency department patient visit ROCIO GAMEZ MD. Facility:B Start: 07-11-2022 End: 07-11-2022 Emergency department patient visit NIKKI SILVA DO O-RID [facility] Procedures Date Procedure Procedure Detail Performing Clinician Cholecystectomy NIKKI LLAMAS [employer] Hysterectomy NIKKI Almeida [employer] Payers Date Payer Category Payer Self-pay 1965 Unknown [id number] Social History Date Type Detail Facility Tobacco smoking status Never smo ked tobacco (finding) [facility] Sex Assigned At Sex [facility] Clinical Note 07-11-2022 Note Date & Type [...] HOLLIS PHYS [address] [place] [address]- Allergies NKA Medications Please ask your primary [...] Swelling, pain or redness in one leg [phone] [employer]. [address] [place] [address], [place] [address]. All rights reserved. This information is not intended as a substitute for professional medical care. Always follow your healthcare professional's instructions. Additional Information VACCINATE! IT SAVES LIVES! Members of the community who have not yet received the COVID-19 vaccine and would like to receive it can visit one of [facility] vaccine clinics. There are many vaccine clinic locations within the [facility]. For locations and available times, please visit [email or web address]. It is important to note that some COVID mobile vaccine clinics are held outdoors and may be canceled in rainy or stormy conditions. To learn more about pediatric vaccinations (ages 5-11), we invite you to visit the [facility] webpage. https://www.[facility].org/pages/2 233-Uzrvt-Vsycsjjlbyj-Frequently-Asked -Questions.html To learn more about the COVID-19 vaccine, we invite you to visit the [facility] website for a list of frequently asked questions. [email or web address].OpenDoors.su/assets/Patients-an d-Visitors/eoluj-Kebitnh-Geiroufiif_Tz ked-Questions.pdf [facility] Patient Portal Access Instructions: Stay connected with your healthcare team and access your personal medical information anytime with the [facility] Patient Portal. If you would like a full copy of your medical records please contact the [facility] Medical Records Department Monday through Monday between 8a.m. and 4:30p.m. Please follow the directions below to access the portal: 1.Access the email account you provided upon registration to the [facility].2.Look for an invitation email from [facility].3.Open the email and access the invitation link: Accept Invitation to [facility]4.Fill in the required cardoso to create your [...] you will allow to register on the [facility] Patient Portal for access to your information. You can also access the [facility] Patient Portal on the [employer]. Simply click on Health Records under Health [...] Call your local pharmacy or go to [email or web address] [email or web address]/[email or web address] to find one close to you.3.Make use of household items: Use cat litter or old coffee grounds to dispose medications if other options are not available. Mix your drugs with these household products, seal them in an airtight container and throw it into the garbage. Call [facility]: [phone] to be sure your drugs can be [...] aware that I should contact my doctor. Patient/Manager Business Signature: _ Date/Time: Relationship to Patient: Witness Name/Signature: Date/Time: [facility] Emergency department Discharge summary 07-11-2022 Note Date & Type Note Facility 07-11-2022 Emergency department Discharge summary Discharge Instructions Thank you for allowing [facility] to assist you with your healthcare needs. [...] DARRYL BRAR [address] [place] [address]- Allergies NKA Medications Please ask your primary [...] Swelling, pain or redness in one leg [phone] [employer]. [address] [place] [address]. All rights reserved. This information is not intended as a substitute for professional medical care. Always follow your healthcare professional's instructions. Additional Information VACCINATE! IT SAVES LIVES! Members of the community who have not yet received the COVID-19 vaccine and would like to receive it can visit one of [facility] vaccine clinics. There are many vaccine clinic locations within the [facility]. For locations and available times, please visit [email or web address] rg. It is important to note that some COVID mobile vaccine clinics are held outdoors and may be canceled in rainy or stormy conditions. To learn more about pediatric vaccinations (ages 5-11), we invite you to visit the [facility] webpage. https://www.[facility].org/pa ges/8466-Javwv-Zugpeoojias-Freque hfab-Klgpm-Opsicfzuu.html To learn more about the COVID-19 vaccine, we invite you to visit the [facility] website for a list of frequently asked questions. https://[email or web address]/assets/Jovani dt-nju-Oqirqohw/vhcpd-Zodzhzt-Tbd quently_Asked-Questions.pdf [facility] Patient Portal Access Instructions: Stay connected with your healthcare team and access your personal medical information anytime with the [facility] Patient Portal. If you would like a full copy of your medical records please contact the [facility] Medical Records Department Monday through Monday between 8a.m. and 4:30p.m. Please follow the directions below to access the portal: 1.Access the email account you provided upon registration to the hospital.2.Look for an invitation email from [facility].3.Open the email and access the invitation link: Accept Invitation to [facility]4.Fill in the required cardoso to create your account. Sign into [email or web address] with your username and password that you [...] you will allow to register on the [facility] Patient Portal for access to your information. You can also access the [facility] Patient Portal on the [employer] arjun. Simply click on Health Records under Health Data and then click on the [employer] logo. HOW TO SAFELY DISPOSE OF PRESCRIPTION [...] Call your local pharmacy or go to http://Telltale Games.Datanomic/1B4Xb6q to find one close to you.3.Make use of household items: Use cat litter or old coffee grounds to dispose medications if other options are not available. Mix your drugs with these household products, seal them in an airtight container and throw it into the garbage. Call [facility]: [phone] to be sure your drugs can be [...] aware that I should contact my doctor. Patient/Manager Business Signature: Date/Time: Relationship to Patient: ____ Witness Name/Signature: Date/Time: [facility] Discharge instructions 07-11-2022 Note Date & [...] Swelling, pain or redness in one leg [phone] [employer]. [address] [place] [address]. All rights reserved. This information is not intended as a substitute for professional medical care. Always follow your healthcare professional's instructions. Follow Up Care 07/11/2022 17:08:09 With:Go to emergency room if symptoms worsen Address:Unknown When:2-4 days With:ROCIO GAMEZ MD Address: [facility] [address] [place] [address]- When:2-4 days [facility] Clinical Note 07-11-2022 Note Date & [...] Sign Date: 07/11/2022 5:59:20 PM Ordering Provider: [facility] Clinical Note 07-11-2022 Note Date & [...] Sign Date: 07/11/2022 5:59:20 PM Ordering Provider: [facility] Evaluation + Plan note Note Date & Type Note Facility Evaluation + Plan note No data available for this section [facility] Summary Purpose Family History No Family History Records Found Advance Directives No Advanced Directives Records Found Additional Source Comments Care Team (unrecognized sect ion and content) Care Team Personnel Name: ROCIO GAMEZ MD Member Role: Primary Care Physician Address: Address: [place] [address] [place] [address]- Care Team Related Persons Name: TONE WARREN Address: Home [address] [place] [address] [place] INFORMATION SOURCE (unrecogn ized section and [...] BE BASED ON THE PRIMARY CLINICAL RECORDS. [facility] [facility]. provides no warranty or guarantee of the accuracy or completeness of information in this document.
== END | disposition home or self-care (01) ==
PROVIDERS: Referring Provider Nurse Practitioner Family; Visit Provider Nurse Practitioner Family
DX: G47.10 Hypersomnia, unspecified (principal)
CPT/HCPCS: 95811

== ENCOUNTER → 2024-09-12 | Outpatient (CLI) | payer MEDICAID, SELFPAY ==
[2024-09-12 13:07] LABS: Absolute Lymphocyte Count 1.85 X10^3/uL (0.83-4.51); Absolute Neutrophil Count 5.6 X10^3/uL (2.0-7.7); Basophil# 0.04 X10^3/uL; Basophil% 0.5 % (0-1); Eosinophil# 0.12 X10^3/uL; Eosinophils% 1.5 % (0-5); Hematocrit 36.3 % (37-47); Hemoglobin 11.1 g/dL (12.0-15.0); Lymphocyte # 1.85 X10^3/ul (0.83-4.51); Mean Corp Hgb Conc 30.6 g/dL (32-36); Mean Corpuscular Hgb 27.4 pg (27.0-32.0); Mean Corpuscular Volume 89.6 fL (81-99); Mean Platelet Vol. 12.1 fl (6.2-12.0); Monocyte# 0.43 X10^3/uL; Monocyte% 5.3 % (0-10); NRBC Flagged by Analyzer 0 % (0-5); Neutrophil % 69.5 % (47-70); Platelet Count 242 K/mm3 (150-450); RBC Distribution Width CV 13.9 % (11.6-14.6); RBC Distribution Width SD 46.1 fl (35.1-43.9); Red Blood Count 4.05 M/mm3 (4.2-5.4); White Blood Count 8.1 K/mm3 (4.4-11.0)
[2024-09-12 13:25] LABS: Vitamin D,25 Hydroxy 10.9 ng/mL
[2024-09-12 13:30] LABS: ALB/GLOB Ratio 0.9 RATIO (0.9-2.4); AST(SGOT) 21 U/L (15-37); Alanine Aminotransfer ALT/SGPT 28 U/L (13-56); Albumin, Serum 3.9 g/dL (3.2-5.0); Alkaline Phosphatase 79 U/L (45-117); Anion Gap 5 (5-15); BUN 14 mg/dL (7-18); Calcium,Total 8.9 mg/dL (8.5-10.1); Chloride 109 mmol/L (98-107); Cholesterol 190 mg/dL (200); Creatinine, Serum 0.82 mg/dL (0.55-1.02); EST Glomerular Filtration Rate 75 mL/min (>60); Est Glom Filt Rate - Afr Amer 91 mL/min (>60); Globulin 4.2 g/dL (2.2-4.2); Glucose 97 mg/dL (74-106); High Density Lipoprotein 67 mg/dL; Iron 67 ug/dL (50-170); Iron Binding Capacity,Total 308 ug/dL (250-450); PERCENT IRON SATURATION 21.8 % (15.0-55.0); Protein, Total 8.1 g/dL (6.4-8.2); Sodium Level 139 mmol/L (136-145); Triglycerides 65 mg/dL; Very Low Density Lipoprotein 13 mg/dL (5-40)
[2024-09-12 14:53] LABS: Hemoglobin A1c 5.1 % (3.8-5.6)
== END | disposition home or self-care (01) ==
LOC: VSLAB 10:36
PROVIDERS: PCP Nurse Practitioner Family; Visit Provider Nurse Practitioner Family
DX: Z00.00 Encounter for general adult medical examination without abnormal findings (principal); E55.9 Vitamin D deficiency, unspecified; D64.9 Anemia, unspecified; E66.9 Obesity, unspecified
CPT/HCPCS: 36415; 80053; 80061; 82306; 83036; 83540; 83550; 84443; 85025

== ENCOUNTER → 2024-10-08 | Outpatient (CLI) | payer MEDICAID, SELFPAY ==
--- NOTE | 2024-10-08 07:47 | BI_ITS ---
MAMMOGRAPHY - BILATERAL SCREENING REASON FOR EXAM: Female, 59 years old. Routine annual screening examination. PERTINENT HISTORY: Sister with breast cancer. TECHNIQUE: Digital bilateral breast lencho (3D mammographic acquisition) in the CC and MLO projections. 2-D mediolateral oblique (MLO) and craniocaudad (CC) views of both breasts were obtained. CAD: Full Field Digital Mammography with Computer Added Detection was performed. COMPARISON: Comparison is made with prior study dated August 24, 2023 and October 01, 2019. FINDINGS: Breast Composition: There are scattered areas of fibroglandular density. There are no dominant masses or suspicious calcifications. Stable small benign-appearing bilateral axillary lymph nodes. No other significant abnormalities are identified. There has been no significant change since the prior study. BI/SCRN MAMM (CAD)W/LENCHO BILAT IMPRESSION: Stable bilateral screening mammogram. Yearly follow-up mammogram recommended. (A) ASSESSMENT CATEGORY: BIRADS Category 2: Benign. A letter regarding these results will be sent to the patient by the facility within 30 days. Approximately 10% of breast cancers are not detected by mammography. A normal mammogram should not delay biopsy of a clinically suspicious abnormality. [id number] Electronically Signed: Kilo Zendejas MD at 10:45 EST ,
== END | disposition home or self-care (01) ==
LOC: OPBI 07:45
PROVIDERS: PCP Nurse Practitioner Family; Referring Provider Nurse Practitioner Family; Visit Provider Nurse Practitioner Family
DX: Z12.31 Encounter for screening mammogram for malignant neoplasm of breast (principal)
CPT/HCPCS: 77063; 77067

== ENCOUNTER → 2025-03-12 | Outpatient (CLI) | payer MEDICAID, SELFPAY ==
[2025-03-12 12:35] LABS: Absolute Lymphocyte Count 2.85 X10^3/uL (0.83-4.51); Absolute Neutrophil Count 4.4 X10^3/uL (2.0-7.7); Basophil# 0.02 X10^3/uL; Basophil% 0.2 % (0-1); Eosinophil# 0.18 X10^3/uL; Eosinophils% 2.2 % (0-5); Hematocrit 35.8 % (37-47); Hemoglobin 10.9 g/dL (12.0-15.0); Lymphocyte # 2.85 X10^3/ul (0.83-4.51); Lymphocyte % 35.6 % (19-41); Mean Corp Hgb Conc 30.4 g/dL (32-36); Mean Corpuscular Hgb 27.8 pg (27.0-32.0); Mean Corpuscular Volume 91.3 fL (81-99); Mean Platelet Vol. 11.9 fl (6.2-12.0); Monocyte# 0.58 X10^3/uL; Monocyte% 7.2 % (0-10); NRBC Flagged by Analyzer 0 % (0-5); Neutrophil # 4.35 X10^3/uL (2.7-7.7); Neutrophil % 54.4 % (47-70); Platelet Count 245 K/mm3 (150-450); RBC Distribution Width CV 14.1 % (11.6-14.6); RBC Distribution Width SD 46.9 fl (35.1-43.9); Red Blood Count 3.92 M/mm3 (4.2-5.4)
[2025-03-12 14:34] LABS: FOLATES,SERUM (FOLIC ACID) 8.73 ng/mL (4.60-34.80)
[2025-03-13 11:30] LABS: Ferritin 293 ng/mL (22-378); Iron 82 ug/dL (50-170); Iron Binding Capacity,Total 274 ug/dL (250-450); Iron Binding Capacity,Unsat 192 ug/dL (228-428); Vitamin B12 495 pg/mL (180-914); Vitamin D,25 Hydroxy 31.5 ng/mL (30-100)
== END | disposition home or self-care (01) ==
PROVIDERS: PCP Nurse Practitioner Family; Visit Provider Family Medicine
DX: D64.9 Anemia, unspecified (principal); E55.9 Vitamin D deficiency, unspecified
CPT/HCPCS: 36415; 82306; 82607; 82728; 82746; 83540; 83550; 85025

== ENCOUNTER 2025-04-07 09:28 | Emergency (ER) | payer MEDICAID, SELFPAY ==
[2025-04-07 09:28] VITALS: BP 131/104; PULSE 97; RESP 14; TEMP 36.6; O2SAT 99; BMI 44.9
--- NOTE | 2025-04-07 10:34 | EDS_ITS ---
HPI History of Present Illness Chief Complaint: Burn Narrative Narrative: Patient is a 59-year-old female past medical history of depression, anemia who presents to the emergency department with a chief complaint of right forearm and left thigh pain. Patient states that she was try to get a coffee this morning and as the coffee was being past her and noted that it spilled on her right forearm and her left thigh prompting her to come here for further evaluation management. Patient states that she feels that her tetanus shot was a while ago and is unsure the last update of this. Patient states that she not taken thing for pain prior to arrival. [facility] Medical History Gallstones Anemia Allergies Depression Home Medications ?Medication ?Instructions ?Recorded ?Last Taken ?Type ferrous sulfate 325 mg (65 mg 325 mg PO BID 09/27/23 U nknown History iron) tablet cholecalciferol (vitamin D3) 125 125 mcg PO QDAY 04/02 Unknown History mcg (5,000 unit) capsule levocetirizine 5 mg tablet 5 mg PO QDAY 04/02/25 Unkno wn History oxybutynin chloride 15 mg 15 mg PO QDAY 04/02/25 Unkno wn History tablet,extended release 24 hr triamcinolone acetonide 55 mcg 1 spray intranasal QDAY 04/02/25 Unknown History nasal spray aerosol Allergy/AdvReac Type Severity Reaction Status Date / Time No Known Allergies Allergy Verified 04/07/25 09:29 Family History Father Colon cancer Sister Anemia Daughter Seizures Surgical History h/o gallbladder removal H/O: hysterectomy H/O right knee surgery Social History Smoking Status: Never smoker alcohol intake: never substance use type: does not use additional social history: pt denies vaping, denies marijuana and denies edible use, pt reports history of anemia pt denies aspirin pt uses ibuprofen ROS ROS ED ROS Narrative Constitutional: Denies fevers, chills, headaches Neurological: Denies numbness, wheeze, tingling Musculoskeletal: Complains of burning sensation to her right forearm and the left thigh as noted above EXAM Physical Exam Narrative Exam Narrative: General: Patient was lying in bed rest comfortably did not appear to be acute distress Head: Atraumatic, normocephalic Eyes: PERRL bilaterally, EOMI bilateral, no conjunctival injection noted Neck: Soft, supple, trachea midline Cardiovascular: Regular rate Musculoskeletal: Compartments in the right upper extremity soft compressible as well as in the left thigh region Extremities: +5/5 strength noted in the bilateral upper and lower extremities, radial pulses +2/4 in the bilateral extremities Neurological: Patient follow commands knew that she was at [facility] year is 2024. Sensation grossly intact in the median ulnar radial nerve distribution in the right upper extremity and sensation grossly intact in the left thigh. Skin: Warm, dry, no concern for infection on the dorsal aspect of her right forearm and her left thigh she states that this is burning in sensation evidence of first-degree burn no sloughing skin no petechia or purpura noted Const Vital Signs: 04/07/25 09:28 04/07/25 10:12 Temperature 97.9 F Temperature Source Temporal Pulse Rate 97 Respiratory Rate 14 Respiratory Effort Normal Respiratory Depth Normal Respiratory Pattern Normal Blood Pressure 131/104 H Blood Pressure Mean 113 Pulse Ox 99 Oxygen Delivery Method Room Air MDM MDM MDM Narrative Medical decision making narrative: Patient is a 59-year-old female who presents to the emergency department the chief complaint of burning sensation to the right forearm and left thigh after coffee spilled on her. On the differential diagnose includes but not limited to first-degree burn, tetanus shot needs updated. Once again patient is nontoxic in appearance and appears to likely have first- degree burn from the hot coffee on the dorsal aspect of her right forearm and left thigh. She was advised to rotate Tylenol and ibuprofen [id number] for pain control. She states that she does not want a thing for pain here in the emergency department after I offered this. She states that she will take something at home. Tetanus shot will be updated. She was advised to watch out for signs of infection and if this is to occur she should return to the emergency department or follow-up with her primary care physician. She is agreeable this plan as well as her sister at bedside all question concerns answered she was discharged home in stable condition. Discharge Plan Triage Chief Complaint: Burn ED Provider: Sin Hare Dx/Rx/DC Orders Clinical Impression: First degree burn of right arm, First degree burn of left leg Prescriptions: No Action ferrous sulfate 325 mg (65 mg iron) tablet 325 mg PO BID levocetirizine 5 mg tablet 5 mg PO QDAY triamcinolone acetonide 55 mcg aerosol,spray 1 spray intranasal QDAY cholecalciferol (vitamin D3) 125 mcg (5,000 unit) capsule 125 mcg PO QDAY oxybutynin chloride 15 mg tablet extended release 24hr 15 mg PO QDAY Primary Care Provider: Kathleen Virk Referrals: Kathleen Virk, [facility] [facility] [Primary Care Provider] - Activity Restrictions/Additional Instructions: Watch out for signs infection such as surrounding redness if this is to occur you should follow-up with your primary care physician or return to the emergency department for antibiotics. Your tetanus shot was updated. Continue to rotate Tylenol and ibuprofen [id number] when you do this you can take something every 3 hours with max dose of Tylenol in 24 hours 4000 mg max dose of ibuprofen in 24 hours 3200 mg. Return with any other concerns. Print Language: East Timorese Disposition Disposition: Home, Self Care
[2025-04-07] MEDS: Diphth,Pertuss(Acell),Tet Vac 0.5 ML Vial IM (11:14)
--- OUTSIDE RECORDS SUMMARY | 2025-04-07 22:44 | XMS RPT_ITS | CCD ---
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 L500.4050, L501.9985, L500.4100, L503.6030, L501.9520 #### [facility] [address] [place], [address] Hemoglobin (Bld) [Mass/Vol] 11.1 g/dL Low 12.0-15.0 [facility] Comment on above: Performed By: #### L 506.1000, L100.0100, L500.4050, L501.9985, L500.4100, L503.6030, L501.9520 #### [facility] [address] [facility] [address] [facility] [place], [address] IG% 0.200 Normal 0.0-0.9 [facility] Comment on above: Result Comment: IG% - Immature Granulocytes (promyelocytes, myelocytes and metamyelocytes) > 1% indicates that a LEFT SHIFT is Present. Performed By: #### L 506.1000, L100.0100, L500.4050, L501.9985, L500.4100, L503.6030, L501.9520 #### [facility] [address] [place], [address] Lymphocytes/100 WBC (Bld) 23.0 % Normal 19-41 [facility] Comment on above: Performed By: #### L 506.1000, L100.0100, L500.4050, L501.9985, L500.4100, L503.6030, L501.9520 #### [facility] [address] [place], [address] MCH (RBC) [Entitic mass] 27.4 pg Normal 27.0-32.0 [facility] Comment on above: Performed By: #### L 506.1000, L100.0100, L500.4050, L501.9985, L500.4100, L503.6030, L501.9520 #### [facility] [address] [place], [address] MCHC (RBC) [Mass/Vol] 30.6 g/dL Low 32-36 [facility] Comment on above: Performed By: #### L 506.1000, L100.0100, L500.4050, L501.9985, L500.4100, L503.6030, L501.9520 #### [facility] [address] [place], [address] MCV (RBC) [Entitic vol] 89.6 fL Normal 81-99 [facility] Comment on above: Performed By: #### L 506.1000, L100.0100, L500.4050, L501.9985, L500.4100, L503.6030, L501.9520 #### [facility] [address] [place], [address] Monocytes/100 WBC (Bld) 5.3 % Normal 0-10 [facility] Comment on above: Performed By: #### L 506.1000, L100.0100, L500.4050, L501.9985, L500.4100, L503.6030, L501.9520 #### [facility] [address] [place], [address] Neutrophils/100 WBC (Bld) 69.5 % Normal 47-70 [facility] Comment on above: Performed By: #### L 506.1000, L100.0100, L500.4050, L501.9985, L500.4100, L503.6030, L501.9520 #### [facility] [address] [place], [address] Nucleated RBC (Bld) [#/Vol] 0 10*3/uL Normal 0-5 [facility] Comment on above: Performed By: #### L 506.1000, L100.0100, L500.4050, L501.9985, L500.4100, L503.6030, L501.9520 #### [facility] [address] [place], [address] Platelet mean volume (Bld) [Entitic vol] 12.1 fL High 6.2-12.0 [facility] Comment on above: Performed By: #### L 506.1000, L100.0100, L500.4050, L501.9985, L500.4100, L503.6030, L501.9520 #### [facility] [address] [place], [address] Platelets (Bld) [#/Vol] 242 10*3/uL Normal 150-450 [facility] Comment on above: Performed By: #### L 506.1000, L100.0100, L500.4050, L501.9985, L500.4100, L503.6030, L501.9520 #### [facility] [address] [place], [address] RBC (Bld) [#/Vol] 4.05 10*6/uL Low 4.2-5.4 [facility] Comment on above: Performed By: #### L 506.1000, L100.0100, L500.4050, L501.9985, L500.4100, L503.6030, L501.9520 #### [facility] [address] [place], [address] RDW SD 46.1 fl High 35.1-43.9 [facility] Comment on above: Performed By: #### L 506.1000, L100.0100, L500.4050, L501.9985, L500.4100, L503.6030, L501.9520 #### [facility] [address] [place], [address] WBC (Bld) [#/Vol] 8.1 10*3/uL Normal 4.4-11.0 [facility] Comment on above: Performed By: #### L 506.1000, L100.0100, L500.4050, L501.9985, L500.4100, L503.6030, L501.9520 #### [facility] [address] [place], [address] Comprehensive Metabolic Prof [facility] [place] 09-12-2024 Albumin [Mass/Vol] 3.9 g/dL Normal 3.2-5.0 [facility] Comment on above: Performed By: #### L 506.1000, L100.0100, L500.4050, L501.9985, L500.4100, L503.6030, L501.9520 #### [facility] [address] [place], [address] Albumin/Globulin [Mass ratio] 0.9 {ratio} Normal 0.9-2.4 [facility] Comment on above: Performed By: #### L 506.1000, L100.0100, L500.4050, L501.9985, L500.4100, L503.6030, L501.9520 #### [facility] [address] [place], [address] ALK P 79 U/L Normal 45-117 [facility] Comment on above: Performed By: #### L 506.1000, L100.0100, L500.4050, L501.9985, L500.4100, L503.6030, L501.9520 #### [facility] [address] [place], [address] ALT [Catalytic activity/Vol] 28 U/L Normal 13-56 [facility] Comment on above: Performed By: #### L 506.1000, L100.0100, L500.4050, L501.9985, L500.4100, L503.6030, L501.9520 #### [facility] [address] [place], [address] AST [Catalytic activity/Vol] 21 U/L Normal 15-37 [facility] Comment on above: Performed By: #### L 506.1000, L100.0100, L500.4050, L501.9985, L500.4100, L503.6030, L501.9520 #### [facility] [address] [place], [address] Bilirubin [Mass/Vol] 0.40 mg/dL Normal 0.20-1.00 [facility] Comment on above: Result Comment: For patients on eltrombopag therapy, use of Dimension [place] TBIL is not recommended. Performed By: #### L 506.1000, L100.0100, L500.4050, L501.9985, L500.4100, L503.6030, L501.9520 #### [facility] [address] [place], [address] BUN/CRE 17.0 RATIO Normal 10-20 [facility] Comment on above: Performed By: #### L 506.1000, L100.0100, L500.4050, L501.9985, L500.4100, L503.6030, L501.9520 #### [facility] [address] [place], [address] CA,Total 8.9 mg/dL Normal 8.5-10.1 [facility] Comment on above: Performed By: #### L 506.1000, L100.0100, L500.4050, L501.9985, L500.4100, L503.6030, L501.9520 #### [facility] [address] [place], [address] Chloride [Moles/Vol] 109 mmol/L High 98-107 [facility] Comment on above: Performed By: #### L 506.1000, L100.0100, L500.4050, L501.9985, L500.4100, L503.6030, L501.9520 #### [facility] [address] [place], [address] CO2 [Moles/Vol] 26.0 mmol/L Normal 21.0-32.0 [facility] Comment on above: Performed By: #### L 506.1000, L100.0100, L500.4050, L501.9985, L500.4100, L503.6030, L501.9520 #### [facility] [address] [place], [address] Creatinine [Mass/Vol] 0.82 mg/dL Normal 0.55-1.02 [facility] Comment on above: Result Comment: The validity of the calculated GFR GFRAA in patients over 70 years has not been determined. Clinical correlation is essential. Performed By: #### L 506.1000, L100.0100, L500.4050, L501.9985, L500.4100, L503.6030, L501.9520 #### [facility] [address] [place], [address] EST GFR - AA 91 mL/min Normal >60 [facility] Comment on above: Result Comment: Afri can [place] GFR Calc Performed By: #### L 506.1000, L100.0100, L500.4050, L501.9985, L500.4100, L503.6030, L501.9520 #### [facility] [address] [place], [place], [id number] (288) GAP 5 Normal 5-15 [facility] Comment on above: Performed By: #### L 506.1000, L100.0100, L500.4050, L501.9985, L500.4100, L503.6030, L501.9520 #### [facility] [address] [place], [address] GFR/1.73 sq M.predicted among non-blacks MDRD (S/P/Bld) [Vol rate/Area] 75 mL/min/{1.73_m2} Normal >60 [facility] Comment on above: Result Comment: Non- GFR Calc Performed By: #### L 506.1000, L100.0100, L500.4050, L501.9985, L500.4100, L503.6030, L501.9520 #### [facility] [address] [place], [address] Globulin (S) [Mass/Vol] 4.2 g/dL Normal 2.2-4.2 [facility] Comment on above: Performed By: #### L 506.1000, L100.0100, L500.4050, L501.9985, L500.4100, L503.6030, L501.9520 #### [facility] [address] [place], [address] Glucose [Mass/Vol] 97 mg/dL Normal 74-106 [facility] Comment on above: Performed By: #### L 506.1000, L100.0100, L500.4050, L501.9985, L500.4100, L503.6030, L501.9520 #### [facility] [address] [place], [address] Potassium [Moles/Vol] 4.0 mmol/L Normal 3.5-5.1 [facility] Comment on above: Performed By: #### L 506.1000, L100.0100, L500.4050, L501.9985, L500.4100, L503.6030, L501.9520 #### [facility] [address] [place], [address] Sodium [Moles/Vol] 139 mmol/L Normal 136-145 [facility] Comment on above: Performed By: #### L 506.1000, L100.0100, L500.4050, L501.9985, L500.4100, L503.6030, L501.9520 #### [facility] [address] [place], [address] T PROT 8.1 g/dL Normal 6.4-8.2 [facility] Comment on above: Performed By: #### L 506.1000, L100.0100, L500.4050, L501.9985, L500.4100, L503.6030, L501.9520 #### [facility] [address] [place], [address] Urea nitrogen [Mass/Vol] 14 mg/dL Normal 7-18 [facility] Comment on above: Performed By: #### L 506.1000, L100.0100, L500.4050, L501.9985, L500.4100, L503.6030, L501.9520 #### [facility] [address] [place], [address] Hemoglobin A1con 09-12-2024 HbA1c (Bld) [Mass fraction] 5.1 % Normal 3.8-5.6 [facility] Comment on above: Result Comment: Norm al < 5.7 % Prediabetic 5.7 - 6.4 % Diabetic >or= 6.5 % Please note range changes. Performed By: #### L 100.0100, L506.0200, L506.1001, L503.0106, L503.6550, L503.6030 #### [facility] [address] [place], [address] Iron+Iron Binding Capacityon 09-12-2024 Iron [Mass/Vol] 67 ug/dL Normal 50-170 [facility] Comment on above: Performed By: #### L 100.0100, L506.0200, L506.1001, L503.0106, L503.6550, L503.6030 #### [facility] [address] [place], [address] IRON SATURATION 21.8 Normal 15.0-55.0 [facility] Comment on above: Performed By: #### L 100.0100, L506.0200, L506.1001, L503.0106, L503.6550, L503.6030 #### [facility] [address] [place], [address] TIBC 308 ug/dL Normal 250-450 [facility] Comment on above: Performed By: #### L 100.0100, L506.0200, L506.1001, L503.0106, L503.6550, L503.6030 #### [facility] [address] [place], [address] Lipid Profileon 09-12-2024 Cholesterol [Mass/Vol] 190 mg/dL Normal 200 [facility] Comment on above: Result Comment: <200 mg/dL Desirable 200-240 mg/dL Borderline >240 mg/dL High Risk Performed By: #### L 506.1000, L100.0100, L500.4050, L501.9985, L500.4100, L503.6030, L501.9520 #### [facility] [address] [place], [address] Cholesterol in HDL [Mass/Vol] 67 mg/dL Normal [facility] Comment on above: Result Comment: The drugs N-Acetylcysteine and Metamizole may falsely depress this assay. Reference Range HDL <40 mg/dL Low HDL Cholesterol HDL >or= 60 mg/dL High HDL Cholesterol Performed By: #### L 506.1000, L100.0100, L500.4050, L501.9985, L500.4100, L503.6030, L501.9520 #### [facility] [address] [place], [address] Cholesterol in LDL [Mass/Vol] 110 mg/dL Normal 0-130 [facility] Comment on above: Performed By: #### L 506.1000, L100.0100, L500.4050, L501.9985, L500.4100, L503.6030, L501.9520 #### [facility] [address] [place], [address] Cholesterol in VLDL [Mass/Vol] 13 mg/dL Normal 5-40 [facility] Comment on above: Performed By: #### L 506.1000, L100.0100, L500.4050, L501.9985, L500.4100, L503.6030, L501.9520 #### [facility] [address] [place], [address] Triglyceride [Mass/Vol] 65 mg/dL Normal [facility] Comment on above: Result Comment: The drugs N-Acetylcysteine and Metamizole may falsely depress this assay. Serum Triglycerides Reference Interval Normal <150 mg/dL Borderline high 150 - 199 mg/dL High 200 - 499 mg/dL Very High > or = 500 mg/dL Performed By: #### L 506.1000, L100.0100, L500.4050, L501.9985, L500.4100, L503.6030, L501.9520 #### [facility] [address] [place], [address] Thyroid Stim Hormone (TSH)on 09-12-2024 TSH 1.620 uIU/mL Normal 0.358-3.740 [facility] Comment on above: Performed By: #### L 100.0100, L506.0200, L506.1001, L503.0106, L503.6550, L503.6030 #### [facility] [address] [facility] [place], [address] Vitamin D,25 Hydroxyon 09-12 Vitamin D 25-OH 10.9 ng/mL Normal [facility] Comment on above: Result Comment: Flory min D 25(OH) Status Range Deficiency <20 ng/mL (50nmol/L) Insufficiency 20 - 30 ng/mL (50 - 75 nmol/L) Sufficiency 30 - 100 ng/mL (75 - 250 nmol/L) Toxicity >100 ng/mL (>250 nmol/L) Performed By: #### L 506.1000, L100.0100, L500.4050, L501.9985, L500.4100, L503.6030, L501.9520 #### [facility] [address] [place], [place], [id number] Absolute lymphocyte countOrd ered By: Kathleen Virk on 08-14-2023 Lymphocytes Auto (Unsp spec) [#/Vol] 4.19 10*3/uL 0.83-4.51 [facility] Basophil percentageOrdered B y: Kathleen Virk on 08-14-2023 Basophils/100 WBC (Bld) 0.5 % 0-1 [facility] Bilirubin [Mass/Vol] 0.30 mg/dL 0.20-1.00 [facility] Comment on above: For patients on eltr ombopag therapy, use of Dimension [place] TBIL is not recommended. Chloride [Moles/Vol] 109 mmol/L 98-107 [facility] Eosinophils/100 WBC (Bld) 1.1 % 0-5 [facility] Glucose [Mass/Vol] 111 mg/dL 74-106 [facility] Comment on above: Fasting Glucose resu lt from 100 to 125 mg/dL suggests IMPAIRED HOMEOSTASIS per A.D.A. criteria. Neutrophils (Bld) [#/Vol] 6.0 10*3/uL 2.0-7.7 [facility] Neutrophils/100 WBC (Bld) 54.1 % 47-70 [facility] Potassium [Moles/Vol] 3.9 mmol/L 3.5-5.1 [facility] Protein [Mass/Vol] 8.3 g/dL 6.4-8.2 [facility] Sodium [Moles/Vol] 139 mmol/L 136-145 [facility] WBC (Bld) [#/Vol] 11.0 10*3/uL 4.4-11.0 [facility] Blood erythrocytes count (nu mber/volume)Ordered By: Kathleen Virk on 08-14-2023 RBC (Bld) [#/Vol] 4.17 10*6/uL 4.2-5.4 [facility] Blood hemoglobin measurement (mass/volume)Ordered By: Kathleen Virk on 08-14-2023 Hemoglobin (Bld) [Mass/Vol] 11.2 g/dL 12.0-15.0 [facility] Blood lymphocytes/100 leukoc ytesOrdered By: Kathleen Virk on 08-14-2023 Lymphocytes/100 WBC (Bld) 38.1 % 19-41 [facility] Blood monocytes/100 leukocyt esOrdered By: Kathleen Virk on 08-14-2023 Monocytes/100 WBC (Bld) 5.9 % 0-10 [facility] Blood platelet mean volumeOr dered By: Kathleen Virk on 08-14-2023 Platelet mean volume (Bld) [Entitic vol] 10.5 fL 6.2-12.0 [facility] Determination of erythrocyte mean corpuscular volume (MCV)Ordered By: Kathleen Virk on 08-14-2023 MCV (RBC) [Entitic vol] 90.4 fL 81-99 [facility] Hematocrit Auto (Bld) [Volum e fraction]Ordered By: Kathleen Virk on 08-14-2023 Hematocrit (Bld) [Volume fraction] 37.7 % 37-47 [facility] Iron measurement (mass/mass) Ordered By: Kathleen Virk on 08-14-2023 Iron (Unsp spec) [Mass/Mass] 57 ug/dL 50-170 [facility] - Chemistry and C hemistry - challengeOrdered By: Kathleen Virk on 08-14-2023 ALP [Catalytic activity/Vol] 81 U/L 45-117 [facility] ALT [Catalytic activity/Vol] 24 U/L 13-56 [facility] CO2 [Moles/Vol] 26.0 mmol/L 21.0-32.0 [facility] Globulin (S) [Mass/Vol] 4.6 g/dL 2.2-4.2 [facility] Urea nitrogen/Creatinine [Mass ratio] 16.8 mg/mg 10-20 [facility] - Hematology and Cell countsOrdered By: Kathleen Virk on 08-14-2023 Erythrocyte distribution width (RBC) [Entitic vol] 46.1 fL 35.1-43.9 [facility] Erythrocyte distribution width (RBC) [Ratio] 14.0 % 11.6-14.6 [facility] Immature granulocytes/100 WBC (Bld) 0.300 % 0.0-0.9 [facility] Comment on above: IG% - Immature Granu locytes (promyelocytes, myelocytes and metamyelocytes) > 1% indicates that a LEFT SHIFT is Present. MCH (RBC) [Entitic mass] 26.9 pg 27.0-32.0 [facility] Nucleated RBC/100 WBC (Bld) [Ratio] 0 % 0-5 [facility] MCHC Auto (RBC) [Mass/Vol]Or dered By: Kathleen Virk on 08-14-2023 MCHC (RBC) [Mass/Vol] 29.7 g/dL 32-36 [facility] No Panel InformationOrdered By: Kathleen Virk on 08-14-2023 Estimated GFR (MDRD) Amer 77 mL/min >60 [facility] Comment on above: GFR Calc Estimated GFR (MDRD) Non-Af Amer 64 mL/min >60 [facility] Comment on above: Non- GFR Calc Thyroid Stimulating Hormone (TSH) 2.45 uIU/mL 0.358-3.74 [facility] Total Iron Binding Capacity 305 ug/dL 250-450 [facility] Platelets bldOrdered By: Maddi Virk on 08-14-2023 Platelets (Bld) [#/Vol] 257 10*3/uL 150-450 [facility] Serum or plasma albumin christian urement (mass/volume)Ordered By: Kathleen Virk on 08-14-2023 Albumin [Mass/Vol] 3.7 g/dL 3.2-5.0 [facility] Serum or plasma albumin/glob ulin mass ratioOrdered By: Kathleen Virk on 08-14-2023 Albumin/Globulin [Mass ratio] 0.8 {ratio} 0.9-2.4 [facility] Serum or plasma calcium christian urement (mass/volume)Ordered By: Kathleen Virk on 08-14-2023 Calcium [Mass/Vol] 8.9 mg/dL 8.5-10.1 [facility] Serum or plasma creatinine m easurement (mass/volume)Ordered By: Kathleen Virk on 08-14-2023 Creatinine [Mass/Vol] 0.95 mg/dL 0.55-1.02 [facility] Comment on above: The validity of the calculated GFR & GFRAA in patients over 70 years has not been determined. Clinical correlation is essential. Serum or plasma iron saturat ion measurement (mass fraction)Ordered By: Kathleen Virk on 08-14-2023 Iron saturation [Mass fraction] 18.7 % 15.0-55.0 [facility] Serum or plasma urea nitroge n measurement (mass/volume)Ordered By: Kathleen Virk on 08-14-2023 Urea nitrogen [Mass/Vol] 16 mg/dL 7-18 [facility] Thin prep Papanicolaou smear with manual screeningOrdered By: Kathleen Virk on 08-14-2023 Thin prep Papanicolaou smear with manual screening 16 U/L 15-37 [facility] Thin prep Papanicolaou smear with manual screening 4 5-15 [facility] .Auto Diffon 07-11-2022 Basophil, Absolute 0.0 10 3/mcL Normal 0.0-0.2 [facility] ([place]) Comment on above: Performed By: #### D MICH, PBNP #### [address] [address] Basophils/100 WBC (Bld) 0.4 % Normal 0.0-2.5 [facility] ([place]) Comment on above: Performed By: #### Eulogio EPPS, PBNP #### [address] [address] Eosinophil, Absolute 0.2 10 3/mcL Normal 0.0-0.4 [facility] ([place]) Comment on above: Performed By: #### Eulogio EPPS, PBNP #### [address] [address] Eosinophils/100 WBC (Bld) 1.6 % Normal 0.0-7.0 [facility] ([place]) Comment on above: Performed By: #### Eulogio EPPS, PBNP #### [address] [address] Lymphocyte, Absolute 2.7 10 3/mcL Normal 0.8-3.9 [facility] ([place]) Comment on above: Performed By: #### Eulogio EPPS, PBNP #### [address] [address] Lymphocytes/100 WBC (Bld) 27.7 % Normal 10.0-50.0 [facility] ([place]) Comment on above: Performed By: #### Eulogio EPPS, PBNP #### [address] [address] Monocyte, Absolute 0.7 10 3/mcL Normal 0.2-1.0 [facility] ([place]) Comment on above: Performed By: #### D MICH, PBNP #### [address] [address] Monocytes/100 WBC (Bld) 7.8 % Normal 1.7-13.0 [facility] ([place]) Comment on above: Performed By: #### D MICH, PBNP #### [address] [address] Neutrophils/100 WBC (Bld) 62.5 % Normal 37.0-80.0 [facility] ([place]) Comment on above: Performed By: #### D MICH, PBNP #### [address] [address] .GFRon 07-11-2022 GFR 80 ml/min/1.73sqm Normal [facility] ([place]) Comment on above: Result Comment: GFR Population mean for , Non- Americans Ages 20-29 = 116 mL/min/1.73 sq.m. Ages 30-39 = 107 mL/min/1.73 sq.m. Ages 40-49 = 99 mL/min/1.73 sq.m. Ages 50-59 = 93 mL/min/1.73 sq.m. Ages 60-69 = 85 mL/min/1.73 sq.m. Ages 70+ = 75 mL/min/1.73 sq.m. Chronic Kidney Disease: Less than 60 mL/min/1.73 square meters End Stage Renal Disease: Less than 15 mL/min/1.73 square meters Performed By: #### B MP, GFR #### [place] [address] [place], [place] [address] GFR Non- 66 ml/min/1.73sqm Normal [facility] ([place]) Comment on above: Result Comment: GFR Population mean for , Non- Americans Ages 20-29 = 116 mL/min/1.73 sq.m. Ages 30-39 = 107 mL/min/1.73 sq.m. Ages 40-49 = 99 mL/min/1.73 sq.m. Ages 50-59 = 93 mL/min/1.73 sq.m. Ages 60-69 = 85 mL/min/1.73 sq.m. Ages 70+ = 75 mL/min/1.73 sq.m. Chronic Kidney Disease: Less than 60 mL/min/1.73 square meters End Stage Renal Disease: Less than 15 mL/min/1.73 square meters Performed By: #### B MP, GFR #### [address] [address] .MDWon 07-11-2022 Monocyte Distribution Width 15.90 Normal 0.00-20.00 [facility] ([place]) Comment on above: Result Comment: For ED adult patients suspected of sepsis, MDW<=20.0 does not rule out sepsis or risk of sepsis Performed By: ###ANGÉLICA CORREA #### [address] [address] .NEUABSon 07-11-2022 Neutrophil, Absolute 6.0 10 3/mcL Normal 2.9-6.2 [facility] ([place]) Comment on above: Performed By: #### Eulogio EPPS PBNP #### [address] [address] BMPon 07-11-2022 BUN/Creatinine Ratio 15 ratio Normal 7-27 [facility]) Comment on above: Performed By: #### Modesta LUGO, GFR #### [address] [address] Calcium [Mass/Vol] 8.9 mg/dL Normal 8.4-10.2 [facility] ([place]) Comment on above: Performed By: #### Modesta MP, GFR #### [address] [address] Chloride [Moles/Vol] 105 mmol/L Normal 98-107 [facility] ([place]) Comment on above: Performed By: #### Modesta MP, GFR #### [address] [address] CO2 [Moles/Vol] 28 mmol/L Normal 22-29 [facility] ([place]) Comment on above: Performed By: #### Modesta MP, GFR #### [address] [address] Creatinine [Mass/Vol] 0.88 mg/dL Normal 0.55-1.02 [facility] ([place]) Comment on above: Performed By: #### B MP, GFR #### [address] [address] Electrolyte Balance 10.0 mEq/L Normal 4.0-15.0 [facility] ([place]) Comment on above: Performed By: #### B MP, GFR #### [address] [address] Glucose [Mass/Vol] 96 mg/dL Normal 70-105 [facility] ([place]) Comment on above: Performed By: #### Modesta MP, GFR #### [address] [address] Potassium [Moles/Vol] 3.6 mmol/L Normal 3.5-5.1 [facility] ([place]) Comment on above: Performed By: #### Modesta MP, GFR #### [address] [address] Sodium [Moles/Vol] 143 mmol/L Normal 136-145 [facility] ([place]) Comment on above: Performed By: #### Modesta MP, GFR #### [address] [address] Urea nitrogen [Mass/Vol] 13 mg/dL Normal 7-18 [facility] ([place]) Comment on above: Performed By: #### Modesta LUGO, GFR #### [address] [address] CBCon 07-11-2022 Erythrocyte distribution width (RBC) [Ratio] 15.5 % High 11.5-14.5 [facility] ([place]) Comment on above: Performed By: ###Arnulfo EPPS PBNP #### [address] [address] Hematocrit (Bld) [Volume fraction] 33.2 % Low 37.0-47.0 [facility] ([place]) Comment on above: Performed By: #### D MICH, PBNP #### [address] [address] Hgb 10.9 G/dL Low 12.0-16.0 [facility] ([place]) Comment on above: Performed By: #### Eulogio EPPS, PBNP #### [facility] [address] [address] MCH (RBC) [Entitic mass] 27.5 pg Normal 27.0-31.2 [facility] ([place]) Comment on above: Performed By: #### Eulogio EPPS, PBNP #### [address] [address] MCHC 32.7 G/dL Low 33.0-37.0 [facility] ([place]) Comment on above: Performed By: #### Eulogio EPPS, PBNP #### [address] [address] MCV (RBC) [Entitic vol] 84.0 fL Normal 80.0-94.0 [facility] ([place]) Comment on above: Performed By: #### Eulogio EPPS, PBNP #### [address] [address] Platelet 279 10 3/mcL Normal 130-400 [facility] ([place]) Comment on above: Performed By: #### Eulogio EPPS, PBNP #### [address] [address] Platelet mean volume (Bld) [Entitic vol] 8.6 fL Normal 7.4-10.4 [facility] ([place]) Comment on above: Performed By: #### Eulogio EPPS, PBNP #### [address] [address] RBC 3.95 10 6/mcL Low 4.20-5.40 [facility] ([place]) Comment on above: Performed By: #### Eulogio EPPS, PBNP #### [facility] [address] [address] WBC 9.6 10 3/mcL Normal 4.6-10.8 [facility] ([place]) Comment on above: Performed By: #### D ANGÉLICA EPPS #### [address] [place], [place] [address] DIMERon 07-11-2022 D-Dimer <200 Normal 0-230 [facility] ([place]) Comment on above: Result Comment: The result of the D-Dimer test should be evaluated in the context of all the clinical and laboratory data available. In those instances where the laboratory result does not agree with the clinical evaluation, additional tests should be performed accordingly. If the D-Dimer result is used to exclude DVT or PE, the recommended cutoff value is less than 230 ng/mL. The D-Dimer result should not be used alone to rule in DVT/PE, but should be used in conjunction with a clinical pretest probability (PTP)assessment model to exclude venous thromboembolism (VTE) in outpatients suspected of deep venous thrombosis (DVT) and pulmonary embolism (PE). Performed By: #### D ANGÉLICA EPPS #### [address] [place], [place] [address] LABORATORYOrdered By: Arsen Lara on 07-11-2022 Troponin I.cardiac DL <= 0.01 ng/mL [Mass/Vol] ng/L Invalid Interpretation Code 0.0 - 51.4 ng/L AO ADM SS Fibrin D-dimer DDU (PPP) [Mass/Vol] ng/mL D-DU Invalid Interpretation Code 0 - 230 ng/mL D-DU AO Coag SS LABORATORYOrdered By: Redd Del Rio on 07-11-2022 Basophil, Absolute 0.0 103/mcL Invalid Interpretation Code 0.0 - 0.2 10^3/mcL AO Workflow SS Basophils/100 WBC (Bld) 0.4 % Invalid Interpretation Code 0.0 - 2.5 % AO Workflow SS Eosinophil, Absolute 0.2 103/mcL Invalid Interpretation Code 0.0 - 0.4 10^3/mcL AO Workflow SS Eosinophils/100 WBC (Bld) 1.6 % Invalid Interpretation Code 0.0 - 7.0 % AO Workflow SS Erythrocyte distribution width (RBC) [Ratio] 15.5 % Invalid Interpretation Code 11.5 - 14.5 % AO Workflow SS Hematocrit (Bld) [Volume fraction] 33.2 % Invalid Interpretation Code 37.0 - 47.0 % AO Workflow SS Hemoglobin (Bld) [Mass/Vol] 10.9 G/dL Invalid Interpretation Code 12.0 - 16.0 G/dL AO Workflow SS Lymphocyte, Absolute 2.7 103/mcL Invalid Interpretation Code 0.8 - 3.9 10^3/mcL AO Workflow SS Lymphocytes/100 WBC (Bld) 27.7 % Invalid Interpretation Code 10.0 - 50.0 % AO Workflow SS MCH (RBC) [Entitic mass] 27.5 pg Invalid Interpretation Code 27.0 - 31.2 pg AO Workflow SS MCHC 32.7 G/dL Invalid Interpretation Code 33.0 - 37.0 G/dL AO Workflow SS MCV (RBC) [Entitic vol] 84.0 fL Invalid Interpretation Code 80.0 - 94.0 fL AO Workflow SS Monocyte distribution width Auto (Bld) [Entitic vol] 15.90 Invalid Interpretation Code 0.00 - 20.00 AO Workflow SS Comment on above: Result Comment: For ED adult patients suspected of sepsis, MDW<=20.0 does not rule out sepsis or risk of sepsis Monocyte, Absolute 0.7 103/mcL Invalid Interpretation Code 0.2 - 1.0 10^3/mcL AO Workflow SS Monocytes/100 WBC (Bld) 7.8 % Invalid Interpretation Code 1.7 - 13.0 % AO Workflow SS Neutrophil, Absolute 6.0 103/mcL Invalid Interpretation Code 2.9 - 6.2 10^3/mcL AO Workflow SS Neutrophils/100 WBC (Bld) 62.5 % Invalid Interpretation Code 37.0 - 80.0 % AO Workflow SS Platelet mean volume (Bld) [Entitic vol] 8.6 fL Invalid Interpretation Code 7.4 - 10.4 fL AO Workflow SS Platelets (Bld) [#/Vol] 279 103/mcL Invalid Interpretation Code 130 - 400 10^3/mcL AO Workflow SS RBC (Bld) [#/Vol] 3.95 106/mcL Invalid Interpretation Code 4.20 - 5.40 10^6/mcL AO Workflow SS WBC (Bld) [#/Vol] 9.6 103/mcL Invalid Interpretation Code 4.6 - 10.8 10^3/mcL AO Workflow SS LABORATORYOrdered By: Arsen Lopes on 07-11-2022 Calcium [Mass/Vol] 8.9 mg/dL Invalid Interpretation Code 8.4 - 10.2 mg/dL AO ADM SS Chloride [Moles/Vol] 105 mmol/L Invalid Interpretation Code 98 - 107 mmol/L AO ADM SS CO2 [Moles/Vol] 28 mmol/L Invalid Interpretation Code 22 - 29 mmol/L AO ADM SS Creatinine [Mass/Vol] 0.88 mg/dL Invalid Interpretation Code 0.55 - 1.02 mg/dL AO ADM SS Electrolyte Balance 10.0 mEq/L Invalid Interpretation Code 4.0 - 15.0 mEq/L AO ADM SS Glucose [Mass/Vol] 96 mg/dL Invalid Interpretation Code 70 - 105 mg/dL AO ADM SS Natriuretic peptide.B prohormone N-Terminal [Mass/Vol] 49 pg/mL Invalid Interpretation Code 0 - 125 pg/mL AO ADM SS Potassium [Moles/Vol] 3.6 mmol/L Invalid Interpretation Code 3.5 - 5.1 mmol/L AO ADM SS Sodium [Moles/Vol] 143 mmol/L Invalid Interpretation Code 136 - 145 mmol/L AO ADM SS Urea nitrogen [Mass/Vol] 13 mg/dL Invalid Interpretation Code 7 - 18 mg/dL AO ADM SS Urea nitrogen/Creatinine [Mass ratio] 15 ratio Invalid Interpretation Code 7 - 27 ratio AO ADM SS LABORATORYOrdered By: SYSTEM SYSTEM on 07-11-2022 GFR 80 ml/min/1.73sqm Invalid Interpretation Code AO Chemistry S GFR Non- 66 ml/min/1.73sqm Inval id Interpretation Code AO Chemistry S PBNPon 07-11-2022 Natriuretic peptide B (Bld) [Mass/Vol] 49 pg/mL Normal 0-125 [facility] ([place]) Comment on above: Result Comment: NT-p roBNP results of less than 300 pg/mL effectively rules out acute congestive heart failure with 99% negative predictive value. Performed By: #### D MICH BRIT #### [place] [address] [place], [place] [address] [facility] Troponin I High Sensitivity <4.0 Normal 0.0-51.4 [facility] ([place]) Comment on above: Performed By: #### T CECY #### [place] [address] [place], [place] [address] XR CHEST 1 VIEWon 07-11-2022 XR CHEST 1 VIEW ORIGINAL HISTORY: Chest pain COMPARISON: 06 Mar [...] Sign Date: 07/11/2022 5:59:20 PM Ordering Provider: JUAN ANTONIO [facility] ([place]) Vital Signs Date Time Vital Sign Value Performing Clinician Facility 04-07-2025 09:28-0400 Body height 154.94 cm Kathleen Virk [facility] Work Phone: 7(575)804-804167 [place] [address] 04-07-2025 09:28-0400 Body mass index (BMI) [Ratio] 44.9 kg/m2 Kathleen Virk [facility] Work Phone: 3(677)482-882567 [place] [address] 04-07-2025 09:28-0400 Body temperature 97.9 [degF] Kathleen Virk [facility] Work Phone: 9(906)368-680867 [place] [address] 04-07-2025 09:28-0400 Body weight 108 kg Kathleen Virk [employer] Work Phone: 1(811)865-890467 [place] [address] 04-07-2025 09:28-0400 Diastolic blood pressure 104 mm[Hg] Kathleen Virk [employer] Work Phone: 2(390)674-022167 [place] [address] 04-07-2025 09:28-0400 Heart rate 97 /min Kathleen Virk [employer] Work Phone: 2(435)447-949767 [place] [address] 04-07-2025 09:28-0400 Respiratory rate 14 /min Kathleen Virk [employer] Work Phone: 2(887)028-105067 [place] [address] 04-07-2025 09:28-0400 SaO2% (BldA) [Mass fraction] 99 % Kathleen Virk [employer] Work Phone: 4(371)142-707667 [place] [address] 04-07-2025 09:28-0400 Systolic blood pressure 131 mm[Hg] Kathleen Vrik [employer] Work Phone: 6(727)407-562367 [place] [address] 04-02-2025 15:48-0400 Body height 154.94 cm Kathleen Virk [employer] Work Phone: 8(109)340-349967 [place] [address] 04-02-2025 15:48-0400 Body mass index (BMI) [Ratio] 45.8 kg/m2 Kathleen Virk [facility] Work Phone: 3(547)508-622667 [place] [address] 04-02-2025 15:48-0400 Body temperature 99.2 [degF] Kathleen Virk [employer] Work Phone: 8(252)368-956767 [place] [address] 04-02-2025 15:48-0400 Body weight 109.99 kg Kathleen Virk [employer] Work Phone: 0(422)600-866467 [place] [address] 04-02-2025 15:48-0400 Diastolic blood pressure 72 mm[Hg] Kathleen Virk [employer] Work Phone: 7(579)446-280367 [place] [address] 04-02-2025 15:48-0400 Heart rate 80 /min Kathleen Virk [employer] Work Phone: 5(924)163-630267 [place] [address] 04-02-2025 15:48-0400 Respiratory rate 18 /min Kathleen Virk [employer] Work Phone: 9(274)568-166567 [place] [address] 04-02-2025 15:48-0400 SaO2% (BldA) [Mass fraction] 97 % Kathleen Virk [employer] Work Phone: 2(688)812-436967 [place] [address] 04-02-2025 15:48-0400 Systolic blood pressure 130 mm[Hg] Kathleen Virk [employer] Work Phone: 3(230)576-270567 [place] [address] 09-27-2023 08:29-0500 Body height 154.[address] Suzan Forde Work Phone: 0(023)933-635367 [place] [address] 09-27-2023 08:29-0500 Body mass index (BMI) [Ratio] 45.7 kg/m2 Dr. Suzan Forde Work Phone: 7(260)935-700767 [place] [address] 09-27-2023 08:29-0500 Body weight 109.[address] Suzan Forde Work Phone: 8(827)931-335867 [place] [address] 09-27-2023 08:29-0500 Diastolic blood pressure 76 mm[Hg] Dr. Suzan Forde Work Phone: [facility] 09-27-2023 08:29-0500 Respiratory rate 16 /min Dr. Suzan Forde Work Phone: [facility] 09-27-2023 08:29-0500 Systolic blood pressure 120 mm[Hg] Dr. Suzan Forde Work Phone: [facility] 07-11-2022 17:13-0400 Body height 155 cm NIKKI CORRALT DO [facility] 07-11-2022 17:13-0400 Body temperature 98.42 [degF] NIKKI CORRALT DO [facility] 07-11-2022 17:13-0400 Body weight 109.2 kg NIKKI CORRALT DO [facility] 07-11-2022 17:13-0400 Diastolic blood pressure 83 mm[Hg] NIKKI CORRALT DO [facility] 07-11-2022 17:13-0400 Heart rate 112 /min NIKKI CORRALT DO [facility] 07-11-2022 17:13-0400 Respiratory rate 20 /min NIKKI CORRALT DO [facility] 07-11-2022 17:13-0400 Systolic blood pressure 128 mm[Hg] NIKKI CORRALT DO [facility] Encounters Encounter Date Encounter Type Care Provider Facility Start: 04-07-2025 End: 04-07-2025 Emergency department patient visit Kathleen Virk [facility] Work Phone: -Emergency Department Work Phone: Start: 04-02-2025 End: 04-02-[address] García Sloan MD [facility] Work Phone: Start: 04-02-2025 End: 04-02-2025 ambulatory Kathleen Virk [employer] Work Phone: [facility] Work Phone: Start: 03-12-2025 End: 03-12-2025 ambulatory Kathleen Diggs [employer] Work Phone: [facility] Work Phone: Start: 03-12-2025 End: 03-12-2025 Patient encounter procedure Inga López DO -Laboratory [facility] Forde Start: 03-12-2025 End: 03-12-2025 ambulatory Inga López [facility] Facility:[facility] Start: 10-10-2024 Encounter for genera l adult medical examination without abnormal findings [facility] Start: 10-08-2024 End: 10-08-2024 ambulatory [facility] Facility:[facility] Start: 09-12-2024 End: 09-12-2024 ambulatory [facility] Facility:[facility] Start: 11-07-2023 End: 11-07-[address] Suzan Forde Work Phone: [facility] Work Phone: Start: 11-07-2023 End: 11-07-[address] Suzan Forde Work Phone: [facility]-Sleep Lab Work Phone: Start: 10-22-2023 Non-patient / Non-visit Dr. Tiki Forde Work Phone: [facility] Start: 10-20-2023 End: 10-20-[address] Suzan Forde Work Phone: [facility] Work Phone: Start: 10-20-2023 End: 10-20-[address] Suzan Forde Work Phone: [facility]-Pulmonary Services/Neurology Work Phone: Start: 09-27-2023 End: 09-27-[address] Suzan Forde Work Phone: [facility] Work Phone: Start: 08-24-2023 End: 08-24-[address] [facility] Work Phone: Start: 08-24-2023 End: 08-24-[address] [facility]-Outpatient Breast Imaging Work Phone: Start: 08-14-2023 End: 08-14-[address] [facility]-Laboratory Work Phone: Start: 07-11-2022 End: 07-11-2022 Emergency department patient visit ROCIO ADKINS MD. Facility:B Start: 07-11-2022 End: 07-11-2022 Emergency department patient visit NIKKI SILVA DO [facility] Procedures Date Procedure Procedure Detail Performing Clinician Start: 03-12-2025 Total iron binding c apacity measurement Kathleen Virk [facility] Work Phone: Start: 03-12-2025 Vitamin D, 25-hydrox y measurement Kathleen Virk [employer] Work Phone: Comment on above: Vitamin D StatusDefi ciency: <20 ng/mL (50nmol/L)Insufficiency: 20-30 ng/mL (50-75 nmol/L)Sufficiency: 30-100 ng/mL (75-250 nmol/L)Toxicity: >100 ng/mL (>250 nmol/L) Start: 08-24-2023 Bilateral mammography Start: 08-24-2023 Ultrasonography of breast Start: 08-14-2023 Plain chest X-ray Cholecystectomy NIKKI BARAHONA MURIEL DO Hysterectomy NIKKI CORRAL Elle DO Plan of Treatment Date Care Activity Detail Author Start: 04-07-[address] [facility] Patient referral [facility] Work Phone: Immunizations Immunization Date Immunization Notes Care Provider Fa valentinty 04-07-2025 tetanus toxoid, redu antonio diphtheria toxoid, and acellular pertussis vaccine, adsorbed Kathleen Virk [facility] [facility]Jhonathan Work Phone: [facility] Payers Date Payer Category Payer Unknown [id number] 2022 Self-pay 1965 Unknown [id number] [id number] [id number] Unknown [id number] Unknown [facility] [id number] Unknown [id number] 2.16.8 [id number] Unknown [id number] 2.16.8 [id number] Unknown [id number] 2.16.8 [id number] Unknown [id number] [id number] [id number] Social History Date Type Detail Facility Start: 04-07-2025 Tobacco smoking status Never s moked tobacco (finding) [facility] Sex Assigned At Sex [facility] Start: 12-30-2019 End: 09-27-2023 Tobacco smoking status NHIS Unknown if ever smoked [facility] Start: 1965 Sex Assigned At Female W [facility] Start: 09-27-2023 End: 04-02-2025 Tobacco smoking status NHIS Ex-smoker (finding) [facility] Mental Status Date Assessment Result Facility 04-07-2025 Cognitive function Voice/Name [facility] Work Phone: Clinical Notes 07-11-2022 to 04-07-2025 Note Date & Type Note Facility 04-07-[address] [facility] 04-02-2025 Evaluation note Diagnosis Onset Date Resolution Macromastia acute April 02 3:24pm [facility] Work Phone: [phone]) 935-643812-31-2023 Procedure [facility] 07-11-2022 Note Discharge Instructions Thank you for allowing [facility] to assist you with your healthcare needs. The following is importantdischarge information regarding your hospital visit. Diagnosis from Today's Visit Chest pain Dyspnea SOB - Shortness of breath What to Do Next Instructions from Your Care Team No qualifying data available. Post Acute Orders No qualifying data available. You Need to Schedule the Following Appointments Follow Up with Go to emergency room if symptoms worsen When Within 2-4 days Follow Up with ROCIO ADKINS MD When Within 2-4 days Where: [facility] [address] [place] [address]- Allergies NKA Medications Please ask your primary doctor or pharmacist before taking any other medication not listed, including over the counter drugs, herbal medications, vitamins and or supplements as they may interact withyour home medications. What How Much When Instructions [...] the signs of a serious problem take moretime to appear. Many problems not related to [...] Swelling, pain or redness in one leg 6705-[address] [employer]. [address] [place] [address]. All rights reserved. This information is not intended as a substitute for professional medical care. Always follow yourhealthcare professional's instructions. Additional Information VACCINATE! IT SAVES LIVES! Members of the community who have not yet received the COVID-19 vaccine and would like to receive it can visit one of [facility] vaccine clinics. There are many vaccine clinic locations within the [facility]. For locations and available times, please visit [email or web address]. It is important to note that some COVID mobile vaccine clinics are held outdoors and may be canceled in rainy orstormy conditions. To learn more about pediatric vaccinations (ages 5-11), we invite you to visit the [facility] webpage. [email or web address] [email or web address] learn more about the COVID-19 vaccine, we invite you to visit the [facility] website for a list of frequently asked questions. [email or web address] _[email or web address].pdf [facility] Patient Portal Access Instructions: Stay connected with your healthcare team and access your personal medical information anytime with the [facility]. If you would like a full copy of your medical records please contact the [facility] Medical Records Department Monday through Monday between 8a.m. and 4:30p.m. Please follow the directions below to access the portal: 1.Access the email account you provided upon registration to the [facility].2.Look for an invitation email from [facility].3.Open the email and access the invitation link: Accept Invitation to [facility]4.Fill in the required cardoso to create your account. Sign into [email or web address] [employer] with your username and password that you [...] you will allow to register on the [facility] Portal for access to your information. You can also access the [facility] Patient Portal on the [employer] [place] arjun. Simply click on Health Records under HealthData and then click on the [facility] logo. HOW TO SAFELY DISPOSE OF PRESCRIPTION MEDICATIONS Please use one of the following methods to safely dispose of your unused medications. 1.Use a drug disposal kit: the drug disposal pouch allows you to safely discard your old and unuseddrugs. Ask your nurse to give you one when you are discharged.2.Visit a local take-back location: Many local pharmacies and police departments have programs that collect old and unwanted prescriptiondrugs. Call your local pharmacy or go to http://bit.ly/9J4Zt5i to find one close to you.3.Make use of household items: Use cat litter or old coffee grounds to dispose medications if other options arenot available. Mix your drugs with these household products, seal them in an airtight container andthrow it into the garbage. Call [facility]: [phone] to be sure your drugs can be [...] drowsiness, such as benzodiazepines, also known as benzos,including diazepam and alprazolam, muscle relaxants or sleep aids. Never sell or share prescriptionopioids. This is illegal. Store opioids in a secure place and out of reach of others (including children, family, friends and visitors). The last page(s) of this document has been signed and retained as a CHART COPY Signatures Patient Education Materials Chest Pain, Uncertain Cause Medication Leaflets My discharge plan and instructions have been reviewed and explained to me and IBRIANA JACQUELINE understand my current condition and have read and understand these discharge instructions. I have received a written copy of the plan/instructions. If I have questions, I am aware that I should contact my doctor. Patient/Core Drilling Supervisor Signature: Date/Time: Relationship to Patient: Witness Name/Signature: Date/Time: [facility] [id number] Emergency department Discharge summary Discharge Instructions Thank you for allowing [facility] to assist you with your healthcare needs. The following is importantdischarge information regarding your hospital visit. Diagnosis from Today's Visit Chest pain Dyspnea SOB - Shortness of breath What to Do Next Instructions from Your Care Team No qualifying data available. Post Acute Orders No qualifying data available. You Need to Schedule the Following Appointments Follow Up with Go to emergency room if symptoms worsen When Within 2-4 days Follow Up with ROCIO ADKINS MD When Within 2-4 days Where: [facility] [address] [place] [address]- Allergies NKA Medications Please ask your primary doctor or pharmacist before taking any other medication not listed, including over the counter drugs, herbal medications, vitamins and or supplements as they may interact withyour home medications. What How Much When Instructions [...] the signs of a serious problem take moretime to appear. Many problems not related to [...] Swelling, pain or redness in one leg 8158-7047 [employer]. [address] [place] [address]. All rights reserved. This information is not intended as a substitute for professional medical care. Always follow yourhealthcare professional's instructions. Additional Information VACCINATE! IT SAVES LIVES! Members of the community who have not yet received the COVID-19 vaccine and would like to receive it can visit one of [facility] vaccine clinics. There are many vaccine clinic locations within the [facility]. For locations and available times, please visit [email or web address]. It is important to note that some COVID mobile vaccine clinics are held outdoors and may be canceled in rainy orstormy conditions. To learn more about pediatric vaccinations (ages 5-11), we invite you to visit the [facility] webpage. [email or web address]/[email or web address] [email or web address].htmlTo learn more about the COVID-19 vaccine, we invite you to visit the [employer] website for a list of frequently asked questions. [email or web address] _[email or web address]-Questions.pdf [facility] Patient Portal Access Instructions: Stay connected with your healthcare team and access your personal medical information anytime with the [facility] Patient Portal. If you would like a full copy of your medical records please contact the [facility] Medical Records Department Monday through Monday between 8a.m. and 4:30p.m. Please follow the directions below to access the portal: 1.Access the email account you provided upon registration to the hospital.2.Look for an invitation email from [facility].3.Open the email and access the invitation link: Accept Invitation to [employer]4.Fill in the required cardoso to create your account. Sign into [email or web address] with your username and password that you [...] you will allow to register on the [facility] Patient Portal for access to your information. You can also access the [employer] Patient Portal on the [employer]. Simply click on Health Records under [employer] [facility] [employer] and then click on the [employer] logo. HOW TO SAFELY DISPOSE OF PRESCRIPTION MEDICATIONS Please use one of the following methods to safely dispose of your unused medications. 1.Use a drug disposal kit: the drug disposal pouch allows you to safely discard your old and unuseddrugs. Ask your nurse to give you one when you are discharged.2.Visit a local take-back location: Many local pharmacies and police departments have programs that collect old and unwanted prescriptiondrugs. Call your local pharmacy or go to http://bit.Flipaste/0L7Gx2o to find one close to you.3.Make use of household items: Use cat litter or old coffee grounds to dispose medications if other options arenot available. Mix your drugs with these household products, seal them in an airtight container andthrow it into the garbage. Call [facility]: [phone] to be sure your drugs can be [...] drowsiness, such as benzodiazepines, also known as benzos,including diazepam and alprazolam, muscle relaxants or sleep aids. Never sell or share prescriptionopioids. This is illegal. Store opioids in a secure place and out of reach of others (including children, family, friends and visitors). The last page(s) of this document has been signed and retained as a CHART COPY Signatures Patient Education Materials Chest Pain, Uncertain Cause Medication Leaflets My discharge plan and instructions have been reviewed and explained to me and IBRIANA JACQUELINE understand my current condition and have read and understand these discharge instructions. I have received a written copy of the plan/instructions. If I have questions, I am aware that I should contact my doctor. Patient/Core Drilling Supervisor Signature: Date/Time: Relationship to Patient: Witness Name/Signature: Date/Time: [facility]09-19-2022 Hospital Discharge instructions Patient Education 07/11/2022 17:48:49 Chest Pain, [...] the signs of a serious problem take moretime to appear. Many problems not related to [...] Swelling, pain or redness in one leg 6564-6511 [employer]. [address] [place] [address]. All rights reserved. This information is not intended as a substitute for professional medical care. Always follow yourhealthcare professional's instructions. Follow Up Care 07/11/2022 17:08:09 With:Go to emergency room if symptoms worsen Address:Unknown When:2-4 days With:ROCIO ADKINS MD Address: [facility] [address] [place] [address]- When:2-4 days [facility] 09-19-2022 Note ORIGINAL HISTORY: Chest pain COMPARISON: 06 [...] Sign Date: 07/11/2022 5:59:20 PM Ordering Provider: [facility]09-19-2022 Note ORIGINAL HISTORY: Chest pain COMPARISON: 06 [...] Sign Date: 07/11/2022 5:59:20 PM [facility] Author Sin Hare [facility] Note Date/Time April 07, 2025 10:3 9am [facility] Medical Records Department [address] [place] [id number] Emergency Department Summary 04/07/25 MR#: [id number] Acct: [id number] Name: KEVIN WARREN Rep #:[id number] 2 : 1965 59 From: Sin Hare DO PCP: JOSE Neumann, METAL TESTER-C Statu s:PRE ER Location: ED HPI History of Present Illness Chief Complaint: Burn Narrative Narrative: Patient is a 59-year-old female past medical history of depression, anemia who presents to the emergency department with a chief complaint of right forearm andleft thigh pain. Patient states that she was try to get a coffee this morning and as the coffee was being past her and noted that it spilled on her right forearm and her left thigh prompting her to come here for further evaluation management. Patient states that she feels that her tetanus shot was a while agoand is unsure the last update of this. Patient states that she not taken thing for pain prior to arrival. [facility] Medical History Gallstones Anemia Allergies Depression Home Medications ?Medication ?Instructions ?Recorded ?Last Taken ?Type ferrous sulfate 325 mg (65 mg 325 mg PO BID 09/27/23 U nknown History iron) tablet cholecalciferol (vitamin D3) 125 125 mcg PO QDAY 04/02 Unknown History mcg (5,000 unit) capsule levocetirizine 5 mg tablet 5 mg PO QDAY 04/02/25 Unkno wn History oxybutynin chloride 15 mg 15 mg PO QDAY 04/02/25 Unkno wn History tablet,extended release 24 hr triamcinolone acetonide 55 mcg 1 spray intranasal QDAY 04/02/25 Unknown History nasal spray aerosol Allergy/AdvReac Type Severity Reaction Status Date / Time No Known Allergies Allergy Verified 04/07/25 09:29 Family History Father Colon cancer Sister Anemia Daughter Seizures Surgical History h/o gallbladder removal H/O: hysterectomy H/O right knee surgery Social History Smoking Status: Never smoker alcohol intake: never substance use type: does not use additional social history: pt denies vaping, denies marijuana and denies edibleuse, pt reports history of anemia pt denies aspirin pt uses ibuprofen ROS ROS ED ROS Narrative Constitutional: Denies fevers, chills, headaches Neurological: Denies numbness, wheeze, tingling Musculoskeletal: Complains of burning sensation to her right forearm and the left thigh as noted above EXAM Physical Exam Narrative Exam Narrative: General: Patient was lying in bed rest comfortably did not appear to be acute distress Head: Atraumatic, normocephalic Eyes: PERRL bilaterally, EOMI bilateral, no conjunctival injection noted Neck: Soft, supple, trachea midline Cardiovascular: Regular rate Musculoskeletal: Compartments in the right upper extremity soft compressible as well as in the left thigh region Extremities: +5/5 strength noted in the bilateral upper and lower extremities, radial pulses +2/4 in the bilateral extremities Neurological: Patient follow commands knew that she was at [facility] 2024. Sensation grossly intact in the median ulnar radial nerve distributionin the right upper extremity and sensation grossly intact in the left thigh. Skin: Warm, dry, no concern for infection on the dorsal aspect of her right forearm and her left thigh she states that this is burning in sensation evidenceof first-degree burn no sloughing skin no petechia or purpura noted Const Vital Signs: 04/07/25 09:28 04/07/25 10:12 Temperature 97.9 F Temperature Source Temporal Pulse Rate 97 Respiratory Rate 14 Respiratory Effort Normal Respiratory Depth Normal Respiratory Pattern Normal Blood Pressure 131/104 H Blood Pressure Mean 113 Pulse Ox 99 Oxygen Delivery Method Room Air MDM MDM MDM Narrative Medical decision making narrative: Patient is a 59-year-old female who presents to the emergency department the chief complaint of burning sensation to the right forearm and left thigh after coffee spilled on her. On the differential diagnose includes but not limited tofirst- degree burn, tetanus shot needs updated. Once again patient is nontoxic in appearance and appears to likely have first- degree burn from the hot coffee on the dorsal aspect of her right forearm and left thigh. She was advised to rotate Tylenol and ibuprofen [id number] for pain control. She states that she does not want a thing for pain here in the emergency department after I offered this. She states that she will take something at home. Tetanus shot will be updated. She was advised to watch out for signs of infection and if this is to occur she should return to the emergency department or follow-up with her primary care physician. She is agreeable this plan as well as her sister at bedside all question concerns answered she was discharged home in stable condition. Discharge Plan Triage Chief Complaint: Burn ED Provider: Sin Hare Dx/Rx/DC Orders Clinical Impression: First degree burn of right arm, First degree burn of left leg Prescriptions: No Action ferrous sulfate 325 mg (65 mg iron) tablet 325 mg PO BID levocetirizine 5 mg tablet 5 mg PO QDAY triamcinolone acetonide 55 mcg aerosol,spray 1 spray intranasal QDAY cholecalciferol (vitamin D3) 125 mcg (5,000 unit) capsule 125 mcg PO QDAY oxybutynin chloride 15 mg tablet extended release 24hr 15 mg PO QDAY Primary Care Provider: Kathleen Virk Referrals: Kathleen Virk, METAL TESTER-C [Primary Care Provider] - Activity Restrictions/Additional Instructions: Watch out for signs infection such as surrounding redness if this is to occur you should follow-up with your primary care physician or return to the emergencydepartment for antibiotics. Your tetanus shot was updated. Continue to rotate Tylenol and ibuprofen [id number] when you do this you can take something every 3 hours with max dose of Tylenol in 24 hours 4000 mg max dose of ibuprofenin 24 hours 3200 mg. Return with any other concerns. Print Language: Luxembourgish Disposition Disposition: Home, Self Care What to do if you have Problems For any increased pain, shortness of breath, bleeding, nausea or vomiting, chestpain, or any unexpected problems, contact your Primary Care Provider. Call [facility] ([phone]) or report to the closest Emergency Room. Call 911 if necessary. 04/07/25 1039 <Electronically signed by Sin Hare DO> Cosigner Signature (if applicable): CC: JOSE METAL TESTER-C Kathleen Virk ~ Signed [facility] Work Phone: Evaluation + Plan note No data available for this section [facility] Evaluation noteNo assessment information available [facility] Work Phone: Evaluation note* Diagnosis Onset Date Resolution Status Breast pain, left acute [facility] Work Phone: Hospital Discharge instructions Additional Instructions Watch out for signs infection such as surrounding redness if this is to occur you should follow-up with your primary care physician or return to the emergency department for antibiotics. Your tetanus shot was updated. Continue to rotate Tylenol and ibuprofen [id number] when you do this you can take something every 3 hours with max dose of Tylenol in 24 hours 4000 mg max dose of ibuprofen in 24 hours 3200 mg. Return with any other concerns.[facility] Work Phone: Reason for referral (narrative)No reason for referral information availableWUniversity [facility]als [facility] Work Phone: Summary Purpose Family History Relationship Condition Age at Onset Recorded Date/T josie father Malignant neoplasm of colon Unknown Relationship Condition Age at Onset Recorded Date/T josie father Malignant neoplasm of colon Unknown sister Anemia Unknown daughter Seizures Unknown Advance Directives Advance Directive Response Recorded Date/ Time Do you have a Healthcare Power of Health Worker? No April 07, 2025 10:12am Chief Complaint and Reason for Visit Chief Complaint N64.4 Chief Complaint N64.4 Left breast painful lymph node DYSPNEA DYSPNEA Reason for Visit Breast pain, left Chief Complaint N64.4 Left breast painful lymph node DYSPNEA DYSPNEA HYPERSOMNIA Reason for Visit Breast pain, left Chief Complaint Admit Date BREAST REDUCTION April 02, 2025 3:24 pm Chief Complaint Admit Date BREAST REDUCTION April 02, 2025 3:24 pm COFFEE April 07, 2025 9:28 am Reason for Visit Admit Date Macromastia April 02, 2025 3:24 pm Additional Source Comments Care Team (unrecognized sect ion and content) Care Team Personnel Name: ROCIO ADKINS MD Member Role: Primary Care Physician Address: Address: [place] [address] [place] [address]- [place] Care Team Related Persons Name: TONE WARREN Address: Home [address] [place], [place] [address] INFORMATION SOURCE (unrecogn ized section and content) DATE CREATED AUTHOR 07/28/2022 [facility] [email or web address] ([place]) DATE CREATED AUTHOR AUTHOR'S ORGANIZ ATION 04/03/2025 [facility] Care Teams (unrecognized sec tion and content) Team Status: Active Member Role Status Dates Dr. Rocio Adkins MD Family Provider Active Dr. Rocio Adkins MD Primary Care Provider Active Team Status: Inactive Member Role Status Dates Dr. Rocio Adkins MD Primary Care Provider Active Kathleen Virk METAL TESTER, METAL TESTER-C Attending Provider, Referrin g Provider Active Team Status: Active Member Role Status Dates Dr. Rocio Adkins MD Family Provider Active Dr. Suzan Forde Primary Care Provider Active Team Status: Inactive Member Role Status Dates Dr. Gayle Moran MD Attending Provider Active Dr. Suzan Forde Primary Care Provider, Referring P pelon Active Team Status: Active Member Role Status Dates Dr. Suzan Forde Primary Care Provider Active Kathleen Virk METAL TESTER, METAL TESTER-C Referring Provider, Other Pr ovider Active Dr. Raf Hernandez DO Attending Provider Active Team Status: Inactive Member Role Status Dates Dr. Suzan Forde Primary Care Provider Active Kathleen Virk METAL TESTER, METAL TESTER-C Attending Provider, Referrin g Provider Active Team Status: Active Member Role Status Dates Dr. Rocio Adkins MD Family Provider Active Kathleen Virk VSC, METAL TESTER-C Primary Care Provider Activ e Team Status: Inactive Member Role Status Dates Kathleenherman Virk VSC, METAL TESTER-C Primary Care Provider Activ e Start: March 12, 2025 End: March 12, 2025 Inga López VSC, DO Attending Provider Active Start: March 12, 2025 End: March 12, 2025 Team Status: Inactive Member Role Status Dates Kathleenherman Virk VSC, METAL TESTER-C Primary Care Provider Activ e Start: April 02, 2025 End: April 02, 2025 Kathleen Virk VSC, METAL TESTER-C Referring Provider Active Start: April 02, 2025 End: April 02, 2025 Dr. García Sloan MD Attending Provider Active Start: April 02, 2025 End: April 02, 2025 Team Status: Active Member Role Status Dates Kathleenherman Virk VSC, METAL TESTER-C Primary Care Provider Activ e Team Status: Inactive Member Role Status Dates Kathleennewton Virk VSC, METAL TESTER-C Primary Care Provider Activ e Start: April 07, 2025 End: April 07, 2025 Dr. Sin Hare , Emergency Provider Active Start: April 07, 2025 End: April 07, 2025 Goals (unrecognized section and content) Goals may be documented in a n alternate section FOR RECORDS PERTAINING TO PATIENTS WHO ARE [...] BE BASED ON THE PRIMARY CLINICAL RECORDS. [facility] [employer] [facility]. provides no warranty or guarantee of the accuracy or completeness of information in this document.
== END 2025-04-07 11:17 | disposition home or self-care (01) ==
LOC: ED 10:41
PROVIDERS: Emergency Provider Emergency Medicine; PCP Nurse Practitioner Family; Visit Provider Emergency Medicine
DX: T22.111A Burn of first degree of right forearm, initial encounter (principal); T24.112A Burn of first degree of left thigh, initial encounter; X12.XXXA Contact with other hot fluids, initial encounter; F32.A Depression, unspecified; D64.9 Anemia, unspecified; Z23 Encounter for immunization
CPT/HCPCS: 90471; 90715; 99282